=== PATIENT | male | born 1975 | race Native Hawaiian/Other Pacific Islander ===

== ENCOUNTER → 2022-07-07 10:09 | Outpatient (BNVA) | payer SELFPAY | PROVIDERS: PCP Family Medicine; Visit Provider Family Medicine | DX: F10.10 Alcohol abuse, uncomplicated (principal); F41.9 Anxiety disorder, unspecified; Z98.84 Bariatric surgery status | CPT/HCPCS: 80053 ==

== ENCOUNTER → 2022-07-24 11:24 | Outpatient (BNVA) | payer SELFPAY | PROVIDERS: PCP Family Medicine; Visit Provider Nurse Practitioner Family | DX: F10.939 Alcohol use, unspecified with withdrawal, unspecified (principal) | CPT/HCPCS: 80053 ==

== ENCOUNTER 2022-07-26 11:59 | Inpatient (IN) | payer SELFPAY ==
[2022-07-26] VITALS (11 sets, daily range): BP systolic 97–135; BP diastolic 61–86; PULSE 76–114; RESP 14–19; TEMP 36.2; O2SAT 92–99; BMI 42.0
--- NOTE | 2022-07-26 12:15 | ECG_ITS ---
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 Measurements Intervals [place] Rate: 150 P: [place]: QRS: -3 QRSD: 95 T: 44 QT: 288 QTc: 455 Interpretive Statements ATRIAL FIBRILLATION WITH RAPID VENTRICULAR RESPONSE MODERATE VOLTAGE CRITERIA FOR LVH, CONSIDER NORMAL VARIANT [MEETS CRITERIA IN ONE OF: R(aVL), S(V1), R(V5), R(V5/V6)+S(V1)] MINIMAL ST DEPRESSION [0.025+ mV ST DEPRESSION] No previous ECG available for comparison Electronically Signed On 07-27-2022 10:36:17 CDT by Rafat Galarza M.D. [email or web address].Tela InnovationsDuvas Technologiespremier health [facility].[employer]/store/NU/[id number] f
--- NOTE | 2022-07-26 12:29 | XR_ITS ---
WS: [id number] XR chest 1V portable [id number] REASON FOR EXAM: dyspnea FINDINGS: Mild tortuosity of the thoracic aorta. Heart at the upper limits of normal in size. Calcified granulomatous disease in both hemithoraces. No acute pulmonary parenchymal or pleural abnormality. Mild thoracic scoliosis convex right with mild changes of degenerative spondylosis in the mid and low er thoracic spine. XR/XR chest 1V portable [id number] IMPRESSION: No acute chest abnormality.
[2022-07-26 12:57] LABS: Basophils # 0.1 10^3/uL (0.0-0.1); Basophils % 0.7 %; Hematocrit 54.3 % (42.0-52.0); Hemoglobin 18.4 g/dL (11.7-16.6); Lymphocytes # 2.2 10^3/uL (0.8-4.8); Lymphocytes % 17.6 %; Mean Corpuscular HGB Conc 33.9 g/dL (30.0-36.0); Mean Corpuscular Hemoglobin 29.8 pg (28.0-34.0); Mean Corpuscular Volume 87.9 fl (80-94); Mean Platelet Volume 10.2 fL (7.4-10.4); Monocytes # 0.7 10^3/uL (0.2-0.9); Monocytes % 5.9 %; Neutrophils # 9.29 10^3/uL (1.8-7.7); Neutrophils % 75.5 %; Nucleated Red Blood Cells % 0 %; Platelet Count 308 10^3/cmm (130-400); Red Blood Count 6.18 10^6/uL (4.1-5.3); Red Cell Distribution Width 12.3 % (12.1-15.1); White Blood Count 12.3 10^3/uL (4.0-10.0)
--- NOTE | 2022-07-26 13:20 | W.ED.GENADLT ---
HPI - General Adult General: Chief complaint: General Medical Stated complaint: Chest pains, dizzy, SOB Time Seen by Provider: 07/26/22 12:42 Source: patient Mode of arrival: ambulatory Limitations: no limitations History of Present Illness: 47-year-old male presents emergency room with complaints of rapid heart rate. Patient has a history of atrial fibrillation. He also has a history of alcohol abuse he has been drinking heavily earlier this week he tried to stop again. He is normally on metoprolol tartrate 100 twice daily. He is not on any anticoagulants he had been previously but they are stopped because of his drinking. Been lightheaded and dizzy but denies any chest pain. Onset (ago): minute(s) Location: abdomen Radiation: non-radiation Severity: moderate Quality: aching Pain Consistency: constant Relieving factors: none Associated symptoms: Reports decreased appetite, dyspnea, malaise, nausea, palpitations and short of breath; Deny chest pain, confusion, cough, diaphoresis, fevers/chills, headache(s), rash, seizures, syncope, vomiting or weakness Treatments prior to arrival: none Review of Systems Const: Reports: malaise; Denies: fever(s), chills, fatigue or diaphoresis ENMT: Denies: throat pain, ear or mastoid pain, nasal discharge or nasal congestion Card: Reports: palpitations and irregular heart rhythm; Denies: chest pain or syncope Resp: Reports: dyspnea GI: Reports: nausea; Denies: abdominal pain or vomiting : Denies: flank pain, dysuria, urinary frequency or urinary urgency Skin/Breast: Denies: rash Neuro: Denies: headache(s) or confusion PFS ED PFSH: Medical History HTN (hypertension) Surgical History Bariatric surgery status Family History Mother Hypertension Father Hypertension Denies family history of Diabetes Dementia Hyperlipidemia Chronic kidney disease (CKD) Suicide Lung disease Cancer Stroke Social History Smoking and tobacco status: never smoked Alcohol intake: current Alcohol intake frequency: few times a month Alcohol type: hard liquor Marital status: Single Highest education level completed: Some College, No Degree service: No Current occupational status: employed Current gender identity: Male Physical Exam Const: COMMON NORMALS: no acute distress GENERAL APPEARANCE: cooperative and comfortable ORIENTATION/CONSCIOUSNESS: Yes awake, Yes oriented to person, Yes oriented to place and Yes oriented to time HENMT: COMMON NORMALS: normocephalic and atraumatic HEAD & SCALP: normocephalic and atraumatic Resp: COMMON NORMALS: normal respiratory effort, No retractions, No use of accessory muscles and clear to auscultation bilaterally AUSCULTATION: clear to auscultation bilaterally Cardio: RATE: tachycardic RHYTHM: abnormal rhythm irregularly irregular GI: COMMON NORMALS: Soft to palpation and No hepatosplenomegaly present AUSCULTATION: Yes normoactive bowel sounds PALPATION: Yes Soft to palpation, No Tenderness to palpation present (GI), No Guarding due to palpation present (GI) and Yes No hepatosplenomegaly present Extremity: COMMON NORMALS: normal to inspection, capillary refill normal, no clubbing, cyanosis or edema, no calf tenderness and no pedal edema Neuro: SENSORIUM/ORIENTATION: Yes oriented to person, Yes oriented to place and Yes oriented to time Skin: COMMON NORMALS: no rashes or lesions noted GENERAL SKIN EXAM: no rashes or lesions noted Course Vital Signs: Vital signs: Vital Signs Temperature 97.2 F L 07/26/22 12:29 Pulse Rate 84 07/26/22 16:56 Respiratory Rate 15 07/26/22 16:56 Blood Pressure 123/86 07/26/22 16:56 Pulse Oximetry 95 07/26/22 16:56 Oxygen Delivery Sc thod 07/26/22 16:56 MDM - General Adult Medical Decision Making Patient initially was in A. fib with RVR converted to sinus tachycardia. He appears to be in withdrawal. Discussed with him initially was telling me that he only had a 1 week shrestha but then admits he had been drinking more regularly for longer period of time. He is not drank last couple of days is tachycardic now some mild kidney injury and is volume depleted is given fluids do not believe it safe to send him home he is having early signs of physical withdraw. We will admit him discussed with Dr. Field. Orders written Medical Records I reviewed the patient's medical records. Lab Data I reviewed the patient's lab results. : 07/26/22 12:45 07/26/22 12:45 Radiology Impressions Chest X-Ray 07/26/22 12:29 IMPRESSION: No acute chest abnormality. Laboratory Results WBC 12.3 10^3/uL (4.0-10.0) H 07/26/22 12:45 RBC 6.18 10^6/uL (4.1-5.3) H 07/26/22 12:45 Hgb 18.4 g/dL (11.7-16.6) H 07/26/22 12:45 Hct 54.3 % (42.0-52.0) H 07/26/22 12:45 MCV 87.9 fl (80-94) 07/26/22 12:45 MCH 29.8 pg (28.0-34.0) 07/26/22 12:45 MCHC 33.9 g/dL (30.0-36.0) 07/26/22 12:45 RDW 12.3 % (12.1-15.1) 07/26/22 12:45 Plt Count 308 10^3/cmm (130-400) 07/26/22 12:45 MPV 10.2 fL (7.4-10.4) 07/26/22 12:45 Neut % (Auto) 75.5 % 07/26/22 12:45 Lymph % (Auto) 17.6 % 07/26/22 12:45 [place] % (Auto) 5.9 % 07/26/22 12:45 Eos % (Auto) 0.0 % 07/26/22 12:45 Baso % (Auto) 0.7 % 07/26/22 12:45 Neut # (Auto) 9.29 10^3/uL (1.8-7.7) H 07/26/22 12:45 Lymph # (Auto) 2.2 10^3/uL (0.8-4.8) 07/26/22 12:45 [place] # (Auto) 0.7 10^3/uL (0.2-0.9) 07/26/22 12:45 Eos # (Auto) 0.0 10^3/uL (0.0-0.8) 07/26/22 12:45 Baso # (Auto) 0.1 10^3/uL (0.0-0.1) 07/26/22 12:45 Nucleated RBC % (auto) 0 % 07/26/22 12:45 Nucleated RBCs # 0.0 /100WBC 07/26/22 12:45 Sodium 136 mmol/L (136-145) 07/26/22 12:45 Potassium 3.7 mmol/L (3.5-5.1) 07/26/22 12:45 Chloride 96 mmol/L (98-107) L 07/26/22 12:45 Carbon Dioxide 19 mmol/L (22-29) L 07/26/22 12:45 Anion Gap 24.7 (5-19) H 07/26/22 12:45 BUN 10 mg/dL (6-20) 07/26/22 12:45 Creatinine 1.5 mg/dL (0.7-1.2) H 07/26/22 12:45 GFR Calculation 49.9 mL/min (90-130) L 07/26/22 12:45 Glucose 148 mg/dL (65-115) H 07/26/22 12:45 Calculated Osmolality 284 mOsm/kg (285-295) L 07/26/22 12:45 Calcium 9.3 mg/dL (8.5-10.5) 07/26/22 12:45 Troponin T Baseline 24 ng/L (0-15) H 07/26/22 12:45 Troponin T 120 Minute 21.05 ng/L (0-15) H 07/26/22 14:53 Delta Troponin T -2.95 ABS# (0-10) L 07/26/22 14:53 NT-Pro-B Natriuret Pep 216 pg/mL (0-125) H 07/26/22 12:45 Lipase 25 U/L (13-60) 07/26/22 12:45 Discharge Plan Discharge Patient Disposition: Admitted As Inpatient Clinical Impression: Alcohol withdrawal, A-fib Condition: Stable Prescriptions: No Action escitalopram oxalate 10 mg tablet 10 mg PO DAILY Qty: 30 1RF Vivitrol 380 mg suspension,extended rel recon 380 mg IM ONCE 28 Days Qty: 1 5RF Rx Instructions: 380mg IM q 4 weeks for alcohol abuse metoprolol tartrate 100 mg tablet 100 mg PO BID Qty: 180 3RF potassium chloride [Klor-Con M10] 10 mEq tablet,ER particles/crystals 10 meq PO DAILY Qty: 30 0RF Referrals: Farzad Flores, [Primary Care Provider] - Coding Level of Care Code ED Regulatory Affairs Specialist for Chg Dc
[2022-07-26 13:31] LABS: Blood Urea Nitrogen 10 mg/dL (6-20); Calcium 9.3 mg/dL (8.5-10.5); Carbon Dioxide 19 mmol/L (22-29); Chloride 96 mmol/L (98-107); Glomerular Filtration Rate 49.9 mL/min (90-130); Glucose 148 mg/dL (65-115); NT Pro B Type Natriuretic Pept 216 pg/mL (0-125); Osmolality Calculated 284 mOsm/kg (285-295); Sodium 136 mmol/L (136-145); Troponin(5th) Baseline 24 ng/L (0-15)
[2022-07-26 13:34] LABS: Anion Gap 24.7 (5-19); Potassium 3.7 mmol/L (3.5-5.1)
[2022-07-26 13:49] LABS: Lipase 25 U/L (13-60)
[2022-07-26] MEDS: LORazepam 2 mg Tablet PO ×2 (13:49→15:57)
[2022-07-26] MEDS: folic acid 1 MG, multivitamin inj 10 ML, thiamine 100 MG in sodium chloride 0.9% 1,000 ML 252.8 MG IV (13:49)
[2022-07-26] MEDS: metoprolol tartrate 1 mg/1 mL SDV 5 mL 2.5 MG IVP (13:49)
[2022-07-26] MEDS: promethazine 25 mg/mL SDV 1 mL IM (13:50)
[2022-07-26 15:14] LABS: Troponin 5 2HR 21.05 ng/L (0-15)
[2022-07-26 15:15] LABS: Troponin 5 2HR Delta -2.95 ABS# (0-10)
--- NOTE | 2022-07-26 15:41 | P.HP_ITS ---
Providers/Chief Complaint Primary Care Provider: Farzad Flores DO Chief Complaint: Chest pains, dizzy, SOB History of Present Illness Dexter Gonzalez is a 47 year old male past medical history of alcohol abuse, gout, hypertension, atrial fibrillation, not on anticoagulation presented to the hospital today for complaint of rapid heart rate. Patient has tried to stop drinking in the past and was prescribed naltrexone injections but was unable to afford them therefore did not use any. He takes metoprolol 12 return milligram twice daily at home. He says he used to take anticoagulants in the past but stopped because of his drinking. He says he has not had much to eat or drink in the last 3 to 4 days. He has been dry heaving a lot and has vomited 6-7 times. He states at times when he vomited he also noted some streaks of blood in there. He also reports dark black stools for last few days. He says the black stools are intermittent and not there all the time. He also says he has been having decreased urine output. He says he drinks vodka half a pint to a pint or more a day. His last drink was at noon today. He says he has periods of binge drinking where he drinks a lot. 2 days ago he drank a bottle of rubbing alcohol about 500 cc. And yesterday he drank a purrel 3 ounce and denture technician bottle. And that is because he did not have access to vodka. Today however he drank vodka. He says he has been hospitalized numerous times in various states in the past. 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 His most recent admission was in January 2022 in [place] in [facility]. We will be requesting records. At this time patient denies chest pain, shortness of breath or abdominal pain, diarrhea. ER course: Hemoglobin 18.4, WBC 12.3, chloride 96, sodium 136, CO2 19, anion gap 24.7, creatinine 1.5, troponin 24, 21, BNP 216. Patient received clonidine 0.1x1, oral Ativan 2 mg x 2, 2.5 IV metoprolol titrate, phenobarb 60 mg IV x1, banana bag, promethazine 25 IM x1. Chest x-ray no acute chest abnormality. Medications/Allergies Home Medications Medication Instructions Recorded Confirmed Last Taken Type escitalopram oxalate 10 mg tablet 10 mg PO DAILY #30 tabs 07/07/22 07/26/22 Unknown Rx metoprolol tartrate 100 mg tablet 100 mg PO BID #180 tabs 07/07/22 07/26/22 07/26/22 Rx naltrexone microspheres 380 mg 380 mg IM ONCE 4 weeks #1 ea 07/07/22 07/26/22 Unknown Rx intramuscular suspension,extended release (Vivitrol) potassium chloride 10 mEq 10 meq PO DAILY #30 tabs 07/24/22 07/26/22 Unknown Rx tablet,extended release(part/cryst) (Klor-Con M) Allergies Allergy/AdvReac Type Severity Reaction Status Date / Time No Known Allergies Allergy Verified 07/26/22 14:23 PFSH Acute PFSH: Medical History HTN (hypertension) Surgical History Bariatric surgery status Family History Mother Hypertension Father Hypertension Denies family history of Diabetes Dementia Hyperlipidemia Chronic kidney disease (CKD) Suicide Lung disease Cancer Stroke Social History Smoking and tobacco status: never smoked Alcohol intake: current Alcohol intake frequency: few times a month Alcohol type: hard liquor Marital status: Single Highest education level completed: Some College, No Degree service: No Current occupational status: employed Current gender identity: Male Vitals/I&O/Wt Last Vital Signs Temp 97.2 F L 07/26/22 12:29 Pulse 109 H 07/26/22 15:30 Resp 15 07/26/22 15:30 BP 135/80 07/26/22 15:30 Pulse Ox 96 07/26/22 15:30 O2 Del Method 07/26/22 15:30 Weight last 48 hrs Weight 140.614 kg Physical Exam Narrative: General: Alert oriented x3, patient seen sitting up in bed appearing comfortable at this time on room air HEENT: Normocephalic, atraumatic, EOMI, breathing normally on room air Cardio: Regular rate rhythm, normal S1-S2, Respiratory: Good bilateral air entry, no wheezes no rhonchi appreciated GI: Abdomen soft, nontender, nondistended, obese rounded abdomen, bowel sounds + Behavior: Appropriate and cooperative Extremities: No bilateral lower extremity edema, knees not warm or erythematous at the time Data : 07/27/22 02:27 07/27/22 02:27 A&P Assessment and plan (1) Alcohol withdrawal: Status: Acute (2) A-fib: Status: Acute (3) Anxiety: Status: Acute (4) Alcohol abuse: Status: Acute Plan #Alcohol abuse, alcohol withdrawal #Atrial fibrillation with RVR #Metabolic acidosis, possibly starvation ketosis #Dehydration #Nausea vomiting #Ingestion of 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 #History of gout, stable at this time - Admit to ICU - Check urine drug screen, alcohol level ? Check FOBT ? Check serum ketones ? High-dose IV thiamine 500 3 times daily x48 hours, to 50 mg daily thereafter total 5 days ? Continue on normal saline 125 cc/h ? Trend electrolytes ? Osmolar gap not elevated ? Patient appears severely dehydrated. We will continue on fluids ? Continue Metroprolol tartrate 100 twice daily ? CIWA protocol ? We will give phenobarbital for withdrawal. - NS bolus x 1L -Patient appears dehydrated and hemoconcentrated. Will give fluids and started on normal saline 125 cc/h ? We will administer thiamine and then slowly start a diet. -Check ABG -We will continue to monitor hemoglobin. ? Check hepatitis profile Full code DVT prophylaxis: SCD Attestations Medical Necessity Statement*: Patient will require to stay in the hospital for next 42 to 72 hours for alcohol withdrawal. Coding Level of Care Code Acute Vegetables Cook for Chg Fwd Diagnoses Alcohol withdrawal F10.939 A-fib I48.91 Anxiety F41.9 Alcohol abuse F10.10
[2022-07-26] MEDS: cloNIDine 0.1 mg Tablet PO (15:56)
[2022-07-26] MEDS: PHENobarbital 130 mg/mL SDV 1 mL 60 MG IV (15:57)
[2022-07-26] MEDS: metoprolol tartrate 50 mg Tablet 100 MG PO (15:57)
--- NOTE | 2022-07-26 18:17 | ECG_ITS ---
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 Measurements Intervals [place] Rate: 78 P: 43 [place]: 175 QRS: 13 QRSD: 110 T: 30 QT: 411 QTc: 470 Interpretive Statements SINUS RHYTHM Compared to ECG 07/26/2022 13:35:57 Sinus tachycardia no longer present T-wave abnormality no longer present Electronically Signed On 07-27-2022 10:42:09 CDT by Rafat Galarza M.D. [email or web address].[employer]/store/[id number]
[2022-07-26 18:28] LABS: Amphetamines Screen Urine Negative (Negative); Barbiturates Screen Urine Negative (Negative); Benzodiazepines Screen Urine Positive (Negative); Cocaine Screen Urine Negative (Negative); Opiate Screen Urine Negative (Negative); PCP Screen Urine Negative (Negative); THC Screen Urine Negative (Negative)
[2022-07-26 18:29] LABS: Alcohol Level < 10 mg/dL (0-10)
--- NOTE | 2022-07-26 18:29 | ECG_ITS ---
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 Measurements Intervals [place] Rate: 110 P: 40 [place]: 132 QRS: 14 QRSD: 98 T: 29 QT: 335 QTc: 453 Interpretive Statements SINUS TACHYCARDIA POSSIBLE LEFT ATRIAL ENLARGEMENT [-0.1mV P-WAVE IN V1/V2] NONSPECIFIC T-WAVE ABNORMALITY ABNORMAL RHYTHM ECG INTERPRETATION BASED ON A DEFAULT AGE OF 40 YEARS Compared to ECG 07/26/2022 12:15:52 T-wave abnormality now present Atrial fibrillation no longer present ST (T wave) deviation no longer present Electronically Signed On 07-27-2022 10:43:04 CDT by Rafat Galarza M.D. [id number]
[2022-07-26 18:53] LABS: Bilirubin Urine 2+ (Negative); Blood Urine Neg (Negative); Glucose Urine UA Norm (Normal); Ketones Urine 2+ (Negative); Nitrate Urine Negative (Negative); Protein Urine 1+ (Negative); Urine Appearance Clear (CLEAR); Urine Color Dark Yellow (Yellow); pH Urine 5 (5-7)
[2022-07-26 18:54] LABS: Add Urine Culture? Yes; Add Urine Microscopic? YES; Bacteria Urine 2+ /hpf; Hyaline Casts Urine 15-25 /lpf; Leukocyte Esterase Urine Negative (Negative); Mucus Urine 2+ /hpf; RBC Urine 0-4 /hpf (0-2); Squamous Epithelial Cell Urine 0-4 /hpf (0-5); Urobilinogen Urine 4 mg/dL (Negative)
[2022-07-26] MEDS: sodium chloride 0.9% 1,000 ML 999 ML IV (18:56)
[2022-07-26 19:22] LABS: Lactic Sepsis W/Reflex 1.8 mmol/L (0.5-2.2); Magnesium 1.9 mg/dL (1.7-2.3)
[2022-07-26 19:32] LABS: Troponin 5 6HR 17.46 ng/L (0-15)
[2022-07-26 19:37] LABS: Troponin 5 6HR Delta -6.54 ng/L (0-12)
--- NOTE | 2022-07-26 21:42 | PC.NURSE ---
PATIENT RESTING IN BED. PATIENT HAS NO FURTHER NEEDS AT THIS TIME.
[2022-07-27] VITALS (25 sets, daily range): BP systolic 110–164; BP diastolic 78–98; PULSE 73–99; RESP 7–26; TEMP 36.7–36.9; O2SAT 94–99
[2022-07-27] MEDS: sodium chloride 0.9% 1,000 ML 125 ML IV ×3 (00:29→16:04)
[2022-07-27] MEDS: LORazepam 2 mg Tablet PO ×3 (01:21→17:22)
--- NOTE | 2022-07-27 01:23 | PC.NURSE ---
Admitted to ICU 4 via wheelchair from ED. Reports feeling anxious and shaky at present time. Order noted for bladder scan and indwelling killian. Patient refused killian at present time. Scanned bladder and 104mL urine estimated. No CIWA orders noted. Notified Dr. Mason and orders placed. Ativan 2mg given PO per CIWA.
[2022-07-27 03:53] LABS: Basophils # 0.1 10^3/uL (0.0-0.1); Basophils % 0.5 %; Eosinophils % 0.4 %; Hemoglobin 14.6 g/dL (11.7-16.6); Lymphocytes # 1.2 10^3/uL (0.8-4.8); Mean Corpuscular HGB Conc 32.4 g/dL (30.0-36.0); Mean Corpuscular Volume 92.4 fl (80-94); Mean Platelet Volume 10.6 fL (7.4-10.4); Monocytes # 0.6 10^3/uL (0.2-0.9); Monocytes % 6.6 %; Neutrophils # 7.49 10^3/uL (1.8-7.7); Neutrophils % 79.1 %; Nucleated Red Blood Cells % 0 %; Platelet Count 224 10^3/cmm (130-400); Red Blood Count 4.87 10^6/uL (4.1-5.3); Red Cell Distribution Width 12.7 % (12.1-15.1); White Blood Count 9.5 10^3/uL (4.0-10.0)
[2022-07-27 04:26] LABS: Alanine Aminotransferase 15 U/L (0-41); Albumin Level 3.6 g/dL (3.5-5.2); Alkaline Phosphatase 53 U/L (40-130); Aspartate Amino Transferase 20 U/L (0-40); Blood Urea Nitrogen 13 mg/dL (6-20); Calcium 8.7 mg/dL (8.5-10.5); Carbon Dioxide 28 mmol/L (22-29); Chloride 99 mmol/L (98-107); Globulin 2.5 g/dL (1.3-4.6); Glomerular Filtration Rate 58.9 mL/min (90-130); Glucose 189 mg/dL (65-115); Osmolality Calculated 293 mOsm/kg (285-295); Sodium 139 mmol/L (136-145); Total Bilirubin 0.5 mg/dL (0.15-1.2); Total Protein 6.1 g/dL (6.6-8.7)
[2022-07-27 04:27] LABS: Anion Gap 15.6 (5-19); Potassium 3.6 mmol/L (3.5-5.1)
[2022-07-27] MEDS: TRAMadol 50 mg Tablet PO ×2 (04:45→16:04)
[2022-07-27] MEDS: pantoprazole 40 mg SDV IVP ×2 (08:27→17:16)
[2022-07-27] MEDS: multivitamin therapeutic Tablet 1 TAB PO (08:28)
[2022-07-27] MEDS: metoprolol tartrate 50 mg Tablet 100 MG PO ×2 (08:28→17:15)
[2022-07-27] MEDS: folic acid 1 mg Tablet PO (08:28)
[2022-07-27] MEDS: escitalopram 10 mg Tablet PO (08:28)
[2022-07-27] MEDS: potassium chloride ER 20 mEq Tablet 40 MEQ PO (10:08)
--- NOTE | 2022-07-27 13:27 | P.PN_ITS ---
Subjective Subjective: Seen this morning. Patient complains of right knee pain 10 out of 10. He believes his gout is flaring up. He is to been on allopurinol in the past however not being able to afford medication he stopped taking it. He is requesting colchicine specifically. Overall however he is no longer having nausea vomiting and feeling better. He is a little bit anxious. Scored 6 on CIWA this morning. Vitals/I&O/Wt Last Vital Signs Temp 98.4 F 07/27/22 04:00 Pulse 84 07/27/22 12:00 Resp 25 H 07/27/22 12:00 BP 125/84 07/27/22 12:00 Pulse Ox 94 07/27/22 12:00 O2 Del Method 07/27/22 12:00 07/26/22 07/27/22 07/27/22 22:59 06:59 14:59 Intake Total 200 / 200 1551.667 / 1551.667 Output Total 250 / 250 Balance -50 / -50 1551.667 / 1551.667 Weight last 48 hrs Weight 139.979 kg Weight 140.614 kg Physical Exam Narrative: General: Alert oriented x3, patient seen sitting up in bed appearing comfortable at this time on room air HEENT: Normocephalic, atraumatic, EOMI, breathing normally on room air Cardio: Regular rate rhythm, normal S1-S2, Respiratory: Good bilateral air entry, no wheezes no rhonchi appreciated GI: Abdomen soft, nontender, nondistended, obese rounded abdomen, bowel sounds + Behavior: Appropriate and cooperative Extremities: No bilateral lower extremity edema, right knee warm compared to left, very tender to touch. 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 #History of gout, stable at this time - Admit to ICU - Urine drug screen negative. ? FOBT pending ? High-dose IV thiamine 500 3 times daily x48 hours, to 50 mg daily thereafter total 5 days ? Continue on normal saline 125 cc/h -Troponins negative ? Continue Metroprolol tartrate 100 twice daily ? [facility] protocol - We will continue to monitor hemoglobin. ? Check hepatitis profile - Cr elevated 1.3. Will place on prednisone 40 x5 days for gout flare - Check uric acid level - Check cpk -At discharge patient will need meds to beds. -Patient's last drink was yesterday at noon. Continue to monitor in the unit today. Potentially discharge tomorrow versus transfer to floor depending on clinical status. Full code DVT prophylaxis: SCD Attestations Medical Necessity Statement*: Patient will need continued monitoring in the ICU tonight for potential of alcohol withdrawal. He is improving. Critical Care Time: 20 Coding Level of Care Code Acute Regional Refrigerated Cdl Truck Driver for Concetta Irwin Diagnoses Alcohol withdrawal F10.939 A-fib I48.91 Anxiety F41.9 Alcohol abuse F10.10
[2022-07-27 16:53] LABS: Creatine Phosphokinase 229 U/L (39-308); Uric Acid 7.9 mg/dL (3.4-7.0)
[2022-07-27 17:05] LABS: Hepatitis A Antibody IgM Non-Reactive (Nonreactive); Hepatitis B Core AB, Total Non-Reactive (Nonreactive); Hepatitis B Surface AB 3.7 (11.5-1000); Hepatitis B Surface Antigen Non-Reactive (Nonreactive); Hepatitis C Virus Antibody Non-Reactive (Nonreactive)
--- NOTE | 2022-07-27 19:17 | PC.NURSE ---
Shift Note Frequent safety and comfort rounds continue. Orders and/or nursing care completed as indicated. Patient monitored for response to intervention and treatment(s). Education provided includes, CIWA assessment and signs to report, Fall risks,medication education upon administration, recovery programs available, pain management and treatment options, and Dr. Field's orders and goals for treatment throughout shift. Patient and significant other at bedside, verbalized understanding of teachings.
[2022-07-27] MEDS: PHENobarbital 130 mg/mL SDV 1 mL IV (20:10)
[2022-07-28] VITALS (13 sets, daily range): BP systolic 147–183; BP diastolic 98–123; PULSE 68–81; RESP 17–30; TEMP 36.7–37.2; O2SAT 94–95
[2022-07-28] MEDS: sodium chloride 0.9% 1,000 ML 125 ML IV ×3 (00:40→17:28)
[2022-07-28 04:39] LABS: Anion Gap 15.5 (5-19); Blood Urea Nitrogen 8 mg/dL (6-20); Calcium 8.8 mg/dL (8.5-10.5); Carbon Dioxide 23 mmol/L (22-29); Chloride 102 mmol/L (98-107); Creatinine Clr Calc Pharmacy 149.2814; Glomerular Filtration Rate 90.1 mL/min (90-130); Glucose 155 mg/dL (65-115); Osmolality Calculated 283 mOsm/kg (285-295); Potassium 4.5 mmol/L (3.5-5.1); Sodium 136 mmol/L (136-145)
[2022-07-28] MEDS: pantoprazole 40 mg SDV IVP ×2 (08:27→16:16)
[2022-07-28] MEDS: metoprolol tartrate 50 mg Tablet 100 MG PO ×2 (08:27→16:16)
[2022-07-28] MEDS: escitalopram 10 mg Tablet PO (08:27)
[2022-07-28] MEDS: multivitamin therapeutic Tablet 1 TAB PO (08:27)
[2022-07-28] MEDS: folic acid 1 mg Tablet PO (08:27)
[2022-07-28] MEDS: predniSONE 20 mg Tablet 40 MG PO (08:32)
[2022-07-28] MEDS: TRAMadol 50 mg Tablet PO ×2 (10:44→21:17)
--- NOTE | 2022-07-28 13:13 | PC.CHAP ---
Pastoral Care Encounter/Spiritual Assessment Type of Contact [] Declined bridge manager visit [] Patient/Family/Request visit [] Outpatient visit [] Follow-up visit [] Physician referral [] Code/Alert [x] Routine visit [] Staff referral [] Actively dying [x] Patient sleeping [] Family support [] [] Out of room [] Palliative care [] [] Receiving care in room [] Pre-surgical visit [] Trauma [] Long length of stay [x] ICU visit [] Other: Relational/Emotional Strength [] Patient feels connected with others/family/visitors/staff [] Distress [] Loneliness/isolation [] Abandonment Spirituality of Patient [] Person of Shobha [] Attends Anabaptist of their Shobha [] Believes in Prayer [] Reads Bible or Mandaeism materials [] There are Spiritual issues to be addressed Dashboard Developer Interventions [x] Prayer [] Active listening [] Non-anxious presence [] Spiritual/emotional support [] Crisis/trauma care [] Spiritual counseling [] Bereavement support [] Provided bereavement packet [] Provided Bible/devotional materials [] Provided toy/stuffed animal, coloring book to patient or family member [] Provided Communion [] Anointing/Commerce [] Salvation [x] Completed spiritual assessment [] Other: Impact on Illness or Injury [] Angry [] Fearful [] Anxious [] Often cries [] Exhaustion [] Unable to work [] Unable to attend scientology [] Unable to walk/stand [] Unable to read [] Unable to drive [] Unable to eat/drink [] Unable to sleep [] Unable to be with family [] Patient intubated [] Other: Summary Time spent with patient
--- NOTE | 2022-07-28 15:11 | PM.PN ---
Subjective Subjective: Seen this morning. Patient states his knee is starting to feel better however he was unable to bear too much weight on it. He did require phenobarbital 130 mg IV x1 dose yesterday. He is doing well at this point. He is no longer having nausea or vomiting. He would like to work with physical therapy. He is requiring a walker at this time. Nausea vomiting has resolved. Vitals/I&O/Wt Last Vital Signs Temp 98.9 F 07/28/22 04:00 Pulse 68 07/28/22 12:00 Resp 17 07/28/22 12:00 BP 153/99 07/28/22 08:00 Pulse Ox 94 07/28/22 04:00 O2 Del Method 07/28/22 04:00 07/28/22 07/28/22 07/28/22 06:59 14:59 22:59 Intake Total 1250 / 4201.667 1218.75 / 1218.75 Output Total 725 / 2175 Balance 525 / 2026.667 1218.75 / 1218.75 Weight last 48 hrs Weight 146.465 kg Weight 139.979 kg Physical Exam Narrative: General: Alert oriented x3, patient seen sitting up in bed appearing comfortable at this time on room air HEENT: Normocephalic, atraumatic, EOMI, breathing normally on room air Cardio: Regular rate rhythm, normal S1-S2, Respiratory: Good bilateral air entry, no wheezes no rhonchi appreciated GI: Abdomen soft, nontender, nondistended, obese rounded abdomen, bowel sounds + Behavior: Appropriate and cooperative Extremities: No bilateral lower extremity edema, right knee warm compared to left, mildly tender to touch but much better compared to yesterday. Swelling has also gone down. 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 #Acute gout flare right knee - Urine drug screen negative. ? FOBT negative ? High-dose IV thiamine 500 3 times daily x48 hours, to 50 mg daily thereafter total 5 days ? Continue on normal saline 125 cc/h -Troponins negative ? Continue Metroprolol tartrate 100 twice daily ? [facility] protocol - We will continue to monitor hemoglobin. ? Hepatitis profile negative - Cr elevated 1.[address] on prednisone 40 x5 days for gout flare. Creatinine is normal now 0.9. -Uric acid 7.9. Once patient's gout flare is over ideally he should be started back on allopurinol to titrate dose to bring uric acid below 6. I will leave that up to his primary care doctor. -CPK normal. -At discharge patient will need meds to beds. -We will order physical therapy for the patient as he is not really able to bear weight and is using a walker at this time. ? [facility] ? pLan for discharge possibly by tomorrow Full code DVT prophylaxis: SCD Attestations Medical Necessity Statement*: Physical therapy today. Plan for discharge possibly tomorrow as patient is able to bear weight on his knee. Coding Level of Care Code Acute Electric Container Tester for Concetta Irwin Diagnoses Alcohol withdrawal F10.939 A-fib I48.91 Anxiety F41.9 Alcohol abuse F10.10
[2022-07-28] MEDS: PHENobarbital 130 mg/mL SDV 1 mL IV ×2 (17:28→20:02)
--- NOTE | 2022-07-28 18:13 | PC.NURSE ---
anxious and restless .. up in bed .. visiting with noted elevated blood pressure at this time.
[2022-07-29] VITALS (41 sets, daily range): BP systolic 124–197; BP diastolic 68–125; PULSE 68–92; RESP 9–27; TEMP 36.6–36.9; BMI 43.7
[2022-07-29] MEDS: TRAMadol 50 mg Tablet PO (01:22)
[2022-07-29] MEDS: PHENobarbital 130 mg/mL SDV 1 mL IV ×3 (01:22→22:06)
[2022-07-29] MEDS: labetalol 5 mg/mL SDV 20mL 10 MG IVP ×3 (02:56→14:28)
--- NOTE | 2022-07-29 08:04 | PC.NURSE ---
noted blood pressure remains elevated no tremors noted at this time iv medication given to treat hypertension
[2022-07-29] MEDS: predniSONE 20 mg Tablet 40 MG PO (08:38)
[2022-07-29] MEDS: metoprolol tartrate 50 mg Tablet 100 MG PO ×2 (08:38→16:48)
[2022-07-29] MEDS: multivitamin therapeutic Tablet 1 TAB PO (08:38)
[2022-07-29] MEDS: pantoprazole 40 mg SDV IVP (08:38)
[2022-07-29] MEDS: escitalopram 10 mg Tablet PO (08:38)
[2022-07-29] MEDS: folic acid 1 mg Tablet PO (08:38)
--- NOTE | 2022-07-29 09:37 | PC.NURSE ---
blood pressure remains elevated at this time doctor here and phenobarb given instructed to use urinal for urine specimen
[2022-07-29 10:15] LABS: Amphetamines Screen Urine Negative (Negative); Barbiturates Screen Urine Positive (Negative); Benzodiazepines Screen Urine Positive (Negative); Cocaine Screen Urine Negative (Negative); Opiate Screen Urine Negative (Negative); PCP Screen Urine Negative (Negative); THC Screen Urine Negative (Negative)
--- NOTE | 2022-07-29 10:47 | PM.PN ---
Subjective Subjective: seen this AM. Pt's BP has been elevated since yesterday. He has required IV pushes of labetalol. He has received total 5 doses of phenobarbital. He will be working with PT this AM. He states his knee is better Vitals/I&O/Wt Last Vital Signs Temp 97.8 F 07/29/22 04:00 Pulse 80 07/29/22 08:00 Resp 27 H 07/29/22 08:00 BP 178/111 07/29/22 08:00 Pulse Ox 94 07/28/22 04:00 O2 Del Method 07/28/22 04:00 07/28/22 07/29/22 07/29/22 22:59 06:59 14:59 Intake Total 1450 / 2668.75 100 / 2768.75 Output Total 350 / 350 Balance 1100 / 2318.75 100 / 2418.75 Weight last 48 hrs Weight 146.465 kg Weight 146.465 kg Physical Exam Narrative: General: Alert oriented x3, patient seen sitting up in bed appearing comfortable at this time on room air HEENT: Normocephalic, atraumatic, EOMI, breathing normally on room air Cardio: Regular rate rhythm, normal S1-S2, Respiratory: Good bilateral air entry, no wheezes no rhonchi appreciated GI: Abdomen soft, nontender, nondistended, obese rounded abdomen, bowel sounds + Behavior: Appropriate and cooperative Extremities: No bilateral lower extremity edema, right knee better compared to yesterday. 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 ? FOBT negative ? High-dose IV thiamine 500 3 times daily x48 hours, to 50 mg daily thereafter total 5 days ? Continue on normal saline 125 cc/h -Troponins negative ? Continue Metroprolol tartrate 100 twice daily ? [facility] protocol - We will continue to monitor hemoglobin. ? Hepatitis profile negative - Cr elevated 1.[address] on prednisone 40 x5 days for gout flare. Creatinine is normal now 0.9. -Uric acid 7.9. Once patient's gout flare is over ideally he should be started back on allopurinol to titrate dose to bring uric acid below 6. I will leave that up to his primary care doctor. -CPK normal. -At discharge patient will need meds to beds. - PT today. ? He is hypertensive requiring IV pushes. Will need to stay in hospital for management of HTN. - He is requiring phenobarbital IV pushes as well. Will need to monitor in ICU today. Full code DVT prophylaxis: SCD Attestations Medical Necessity Statement*: Alcohol withdrawal, HTn. Requiring IV BP meds, IV phenobarbital as well. COntinue to monitor in ICU today Coding Level of Care Code Acute Animal Impersonator for [facility] Diagnoses Alcohol withdrawal F10.939 A-fib I48.91 Anxiety F41.9 Alcohol abuse F10.10
[2022-07-29] MEDS: cloNIDine 0.1 mg Tablet PO (11:06)
--- NOTE | 2022-07-29 11:12 | PC.NURSE ---
blood pressure remains elevated clonidine given
--- NOTE | 2022-07-29 14:35 | PC.NURSE ---
blood pressure remains elevated repeat medication and doctor notified
--- NOTE | 2022-07-29 15:45 | PC.NURSE ---
blood pressure check in room lying on right side ... right arm 165/105 right wrist 151/96 left arm 136/78 left wrist 147/89
[2022-07-30] VITALS (42 sets, daily range): BP systolic 132–186; BP diastolic 72–110; PULSE 65–100; RESP 15–30; TEMP 36.6–37.8; O2SAT 93–100; BMI 43.7
[2022-07-30] MEDS: TRAMadol 50 mg Tablet PO ×2 (01:05→19:39)
[2022-07-30] MEDS: labetalol 5 mg/mL SDV 20mL 10 MG IVP (01:06)
[2022-07-30] MEDS: morphine 4 mg/mL SDV 1 mL 1 MG IVP ×4 (02:15→20:50)
[2022-07-30 05:46] LABS: Anion Gap 13.6 (5-19); Blood Urea Nitrogen 10 mg/dL (6-20); Carbon Dioxide 30 mmol/L (22-29); Chloride 97 mmol/L (98-107); Creatinine Clr Calc Pharmacy 149.2814; Glomerular Filtration Rate 90.1 mL/min (90-130); Glucose 128 mg/dL (65-115); Osmolality Calculated 285 mOsm/kg (285-295); Potassium 3.6 mmol/L (3.5-5.1); Sodium 137 mmol/L (136-145)
[2022-07-30] MEDS: metoprolol tartrate 50 mg Tablet 100 MG PO ×2 (08:26→17:23)
[2022-07-30] MEDS: multivitamin therapeutic Tablet 1 TAB PO (08:26)
[2022-07-30] MEDS: folic acid 1 mg Tablet PO (08:26)
[2022-07-30] MEDS: pantoprazole DR 40 mg Tablet PO (08:27)
[2022-07-30] MEDS: escitalopram 10 mg Tablet PO (08:27)
[2022-07-30] MEDS: predniSONE 20 mg Tablet 40 MG PO (08:27)
[2022-07-30] MEDS: acetaminophen 325 mg Tablet 650 MG PO ×3 (09:17→21:27)
--- NOTE | 2022-07-30 13:59 | PM.PN ---
Subjective Subjective: Seen this AM. CIWA score 0. Patient blood pressure is much better controlled at this time. He was able to work with physical therapy yesterday and home exercise program is recommended. Patient complains of bilateral knee pain right being worse than left. He also had low-grade temp today at 100.0 this morning. He was given Tylenol. Vitals/I&O/Wt Last Vital Signs Temp 100.0 F H 07/30/22 08:00 Pulse 79 07/30/22 12:30 Resp 15 07/30/22 12:30 BP 134/93 07/30/22 12:30 Pulse Ox 98 07/30/22 08:31 O2 Del Method 07/28/22 04:00 07/29/22 07/30/22 07/30/22 22:59 06:59 14:59 Intake Total 450 / 750 360 / 360 Output Total 700 / 700 Balance 450 / 550 -3 / 547 -340 / -340 Weight last 48 hrs Weight 146.465 kg Weight 146.465 kg Physical Exam Narrative: General: Alert oriented x3, patient seen sitting up in bed appearing comfortable at this time on room air HEENT: Normocephalic, atraumatic, EOMI, breathing normally on room air Cardio: Regular rate rhythm, normal S1-S2, Respiratory: Good bilateral air entry, no wheezes no rhonchi appreciated GI: Abdomen soft, nontender, nondistended, obese rounded abdomen, bowel sounds + Behavior: Appropriate and cooperative Extremities: No bilateral lower extremity edema, right knee better compared to yesterday. 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 #Acute gout flare right knee - Urine drug screen negative. ? FOBT negative ? High-dose IV thiamine 500 3 times daily x48 hours, thiamine 100 daily ? Stop IV fluids. -Troponins negative ? Continue Metroprolol tartrate 100 twice daily ? [facility] protocol - We will continue to monitor hemoglobin. ? Hepatitis profile negative - Cr elevated 1.[address] on prednisone 40 x5 days for gout flare. Last today July 31. Creatinine is normal now 0.9. -Uric acid 7.9. Once patient's gout flare is over ideally he should be started back on allopurinol to titrate dose to bring uric acid below 6. I will leave that up to his primary care doctor. -CPK normal. -At discharge patient will need meds to beds. - PT eval complete. Home exercise program recommended ? Stop phenobarbital ?I will start amlodipine 5 mg daily. - Check right knee CT Full code DVT prophylaxis: SCD Transfer to floor Attestations Medical Necessity Statement*: Ready for discharge but unable to afford medications. Will dc in AM with meds to beds. Move to floor today. Coding Level of Care Code Acute Biztalk Architect for Concetta Irwin Diagnoses Alcohol withdrawal F10.939 A-fib I48.91 Anxiety F41.9 Alcohol abuse F10.10
--- NOTE | 2022-07-30 18:40 | PC.NURSE ---
REPORT CALLED TO IRLANDA CARMICHAEL. THIS NURSE IS TRANSPORTING PT UP TO THE FLOOR.
--- NOTE | 2022-07-30 18:49 | CTR_ITS ---
PROCEDURE INFORMATION: Exam: CT Right Lower Extremity Without Contrast, Knee Exam date and time: 07/30/2022 9:35 PM Age: 47 years old Clinical indication: Pain; Knee; Right; Additional info: Knee pain TECHNIQUE: Imaging protocol: CT of the Right lower extremity without contrast was performed. Exam focused on the knee. Radiation optimization: All CT scans at this facility use at least one of these dose optimization techniques: automated exposure control; mA and/or kV adjustment per patient size (includes targeted exams where dose is matched to clinical indication); or iterative reconstruction. COMPARISON: No relevant prior studies available. RADIATION DOSE METRICS: Total DLP (mGy-cm): 386.78 FINDINGS: Bones/joints: Large joint effusion. Mild tricompartmental osteoarthritis of the knee. Soft tissues: Normal. CT/CT knee RT wo con* [id number] IMPRESSION: 1. Negative for fracture or dislocation. 2. Large joint effusion. 3. Mild tricompartmental osteoarthritis of the knee.
[2022-07-31] VITALS (11 sets, daily range): BP systolic 118–155; BP diastolic 73–92; PULSE 62–80; RESP 15–18; TEMP 36.6–36.8; O2SAT 95–98
[2022-07-31] MEDS: morphine 4 mg/mL SDV 1 mL 1 MG IVP ×3 (01:32→18:27)
[2022-07-31] MEDS: predniSONE 20 mg Tablet 40 MG PO (08:07)
[2022-07-31] MEDS: thiamine 100 mg Tablet PO (08:07)
[2022-07-31] MEDS: pantoprazole DR 40 mg Tablet PO (08:07)
[2022-07-31] MEDS: multivitamin therapeutic Tablet 1 TAB PO (08:07)
[2022-07-31] MEDS: folic acid 1 mg Tablet PO (08:07)
[2022-07-31] MEDS: metoprolol tartrate 50 mg Tablet 100 MG PO ×2 (08:07→18:27)
[2022-07-31] MEDS: amlodipine 5 mg Tablet PO (08:08)
[2022-07-31] MEDS: escitalopram 10 mg Tablet PO (08:08)
[2022-07-31] MEDS: acetaminophen 325 mg Tablet 650 MG PO (10:56)
--- NOTE | 2022-07-31 13:03 | P.CONIM_ITS ---
Providers/Reason For Consult Consulting Physician/Specialty*: Serafin Wellington MD; orthopedic surgery Reason for Consult*: Bilateral knee pain Requesting Physician: Anum Field MD Attending Physician: Anum Field MD Primary Care Provider: Farzad Flores DO History of Present Illness History of Present Illness Dexter Gonzalez is a 47 year old male admitted on 07/26/2022 with chest pains, shortness of breath, and a rapid heart rate.. He has a complicated medical history. He has a history of atrial fibrillation and as well as had a gout. In the past he is manages his gout with colchicine and anti-inflammatories. He states he was seen in the emergency room with his rapid heart rate at that time had some pain in his knees and right big toe. He states since his admission his pain is significantly increased. He now describes severe pain in the right and left knee. Treatment to this point has included prednisone and pain and morphine for pain. He has no history of fevers or chills. He has no history of other infections. He denies any rashes or skin breakdown. Medications/Allergies Home Medications Medication Instructions Recorded Confirmed Last Taken Type escitalopram oxalate 10 mg tablet 10 mg PO DAILY #30 tabs 07/07/22 07/26/22 Unknown Rx metoprolol tartrate 100 mg tablet 100 mg PO BID #180 tabs 07/07/22 07/26/22 07/26/22 Rx naltrexone microspheres 380 mg 380 mg IM ONCE 4 weeks #1 ea 07/07/22 07/26/22 Unknown Rx intramuscular suspension,extended release (Vivitrol) potassium chloride 10 mEq 10 meq PO DAILY #30 tabs 07/24/22 07/26/22 Unknown Rx tablet,extended release(part/cryst) (Klor-Con M) Allergies Allergy/AdvReac Type Severity Reaction Status Date / Time No Known Allergies Allergy Verified 07/26/22 14:23 Current Medications Generic Name Dose Route Start Last Admin Trade Name Freq PRN Reason Stop Dose Admin Acetaminophen 650 mg 07/30/22 09:00 07/31/22 10:56 Acetaminophen 325 Mg Tablet PO 650 mg Q4H PRN Administration MILD PAIN OR INCREASE TEMP Amlodipine Besylate 5 mg 07/31/22 09:00 07/31/22 08:08 Amlodipine 5 Mg Tablet PO 5 mg DAILY BELLA Administration Escitalopram Oxalate 10 mg 07/27/22 09:00 07/31/22 08:08 Escitalopram 10 Mg Tablet PO 10 mg DAILY BELLA Administration Folic Acid 1 mg 07/27/22 09:00 07/31/22 08:07 Folic Acid 1 Mg Tablet PO 1 mg DAILY BELLA Administration Labetalol HCl 10 mg 07/29/22 01:35 07/30/22 01:06 Labetalol 5 Mg/Ml Sdv 20ml IVP 10 mg Q4H PRN Administration HYPERTENSION Metoprolol Tartrate 100 mg 07/27/22 09:00 07/31/22 08:07 Metoprolol Tartrate 50 Mg Tablet PO 100 mg BID BELLA Administration Morphine Sulfate 1 mg 07/30/22 02:00 07/31/22 08:14 Morphine 4 Mg/Ml Sdv 1 Ml IVP 1 mg Q4H PRN Administration SEVERE PAIN Multivitamins Therapeutic 1 tab 07/27/22 09:00 07/31/22 08:07 Multivitamin Therapeutic Tablet PO 1 tab DAILY BELLA Administration Pantoprazole Sodium 40 mg 07/30/22 09:00 07/31/22 08:[address] 40 Mg Tablet PO 40 mg DAILY BELLA Administration Phenobarbital Sodium 130 mg 07/27/22 18:51 07/29/22 22:06 Phenobarbital 130 Mg/Ml Sdv 1 Ml IV 130 mg Q30MIN PRN Administration ALCOHOL WITHDRAWAL Prednisone 40 mg 07/28/22 09:30 07/31/22 08:07 Prednisone 20 Mg Tablet PO 40 mg DAILY BELLA Administration Thiamine Mononitrate 100 mg 07/31/22 09:00 07/31/22 08:07 Thiamine 100 Mg Tablet PO 100 mg DAILY BELLA Administration PFSH Acute PFSH: Medical History HTN (hypertension) Surgical History Bariatric surgery status Family History Mother Hypertension Father Hypertension Denies family history of Diabetes Dementia Hyperlipidemia Chronic kidney disease (CKD) Suicide Lung disease Cancer Stroke Social History Smoking and tobacco status: never smoked Alcohol intake: current Alcohol intake frequency: few times a month Alcohol type: hard liquor Marital status: Single Highest education level completed: Some College, No Degree service: No Current occupational status: employed Current gender identity: Male Vitals/I&O/Wt Last Vital Signs Temp 98.0 F 07/31/22 12:00 Pulse 75 07/31/22 12:00 Resp 16 07/31/22 12:00 BP 138/90 07/31/22 12:00 Pulse Ox 98 07/31/22 12:00 O2 Del Method 07/31/22 12:00 07/30/22 07/31/22 07/31/22 22:59 06:59 14:59 Intake Total 360 / 960 600 / 600 Balance 360 / 260 600 / 600 Weight last 48 hrs Weight 318 lb 8 oz Weight 322 lb 14.4 oz Physical Exam Narrative: The patient is a healthy he is a healthy-appearing but obese male in no obvious distress. There is erythema about the right big toe metatarsophalangeal joint and the joint is tender to touch. There is no erythema over either knee. He has large effusions in both knees. Right knee motion is from near full extension to 100 degrees of flexion Left knee motion is from 10 degrees short of full extension to approximately 45 degrees of flexion. He has pain with extremes of motion of both knees. His patellas track well Is Mark collateral ligaments are stable. MOTOR: Strong quadriceps hamstrings tibialis anterior and extensor houses longus strength SENSATION: Intact to light touch Vascular: He has palpable dorsalis pedis pulses. Data : 07/27/22 02:27 07/30/22 04:[address]: Radiologist's impression: I reviewed his CT scan of the right knee from 07/30/2022. The patient has mild degenerative changes and a large right knee joint effusion. A&P Assessment and plan (1) Gout: Status: Acute (2) Effusion, right knee: The patient has a history of gout. The clinical The clinical picture multiple joint pain with the involvebig toe would be highly suggestive of gout. The patient has not improved significantly with steroids. I told him the diagnoses could best be clarified by aspirating fluid and sending it off for crystal analysis, cell counts, and culture. I discussed arthrocentesis with him and the patient agreed to proceed The right knee was prepped medially with Betadine. The skin was anesthetized with 1 cc of 1% lidocaine. An 18-gauge needle was introduced and 10 cc of slightly cloudy yellow fluid were aspirated. Fluid was sent for a routine cell count, crystals, and cultures, the knee was then infiltrated with 2 cc of 2% lidocaine, 2 cc of 0.5% Marcaine, and 1 cc of Celestone Soluspan (80 mg/cc) Status: Acute Coding Level of Care Code Acute Hydrogenation Still Operator for [facility] Fwd Diagnoses Gout M10.9 Effusion, right knee M25.461 Comment CPT 79890
[2022-07-31 13:41] LABS: Appearance Synovial Fluid CLOUDY (CLEAR); Color Synovial Fluid PALE YELLOW (PALE YELLOW); Cyto Order Verification No Order
[2022-07-31 13:44] LABS: RBC Synovial Fluid 3 10^3/uL (0-0); Synovial Fluid Mononuclear # 1.341 10^3/uL; WBC Synovial Fluid 25712 /uL (0-150)
[2022-07-31 13:55] LABS: PATH Referal YES
[2022-07-31 14:20] LABS: Crystals, Fluid See Path Consult
--- NOTE | 2022-07-31 14:37 | PM.PN ---
Subjective Subjective: complains of b/l knee pain right worse than left, unable to bear weight fully on that knee. CT right knee shows large joint effusion Vitals/I&O/Wt Last Vital Signs Temp 98.0 F 07/31/22 12:00 Pulse 75 07/31/22 12:00 Resp 16 07/31/22 12:00 BP 138/90 07/31/22 12:00 Pulse Ox 98 07/31/22 12:00 O2 Del Method 07/31/22 12:00 07/30/22 07/31/22 07/31/22 22:59 06:59 14:59 Intake Total 360 / 960 600 / 600 Balance 360 / 260 600 / 600 Weight last 48 hrs Weight 144.469 kg Weight 146.465 kg Physical Exam Narrative: General: Alert oriented x3, patient seen sitting up in bed appearing comfortable at this time on room air HEENT: Normocephalic, atraumatic, EOMI, breathing normally on room air Cardio: Regular rate rhythm, normal S1-S2, Respiratory: Good bilateral air entry, no wheezes no rhonchi appreciated GI: Abdomen soft, nontender, nondistended, obese rounded abdomen, bowel sounds + Behavior: Appropriate and cooperative Extremities: No bilateral lower extremity edema, right knee significantly swollen compared to left but left also swollen today. It has definitely worsened since admission. Symmetrically warm. 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 - Urine drug screen negative. ? FOBT negative ? High-dose IV thiamine 500 3 times daily x48 hours, thiamine 100 daily ? Stop IV fluids. -Troponins negative ? Continue Metroprolol tartrate 100 twice daily ? [facility] protocol - We will continue to monitor hemoglobin. ? Hepatitis profile negative - Cr elevated 1.[address] on prednisone 40 x5 days for gout flare. Last today July 31. Creatinine is normal now 0.9. -Uric acid 7.9. Once patient's gout flare is over ideally he should be started back on allopurinol to titrate dose to bring uric acid below 6. I will leave that up to his primary care doctor. -CPK normal. -At discharge patient will need meds to beds. - PT eval complete. Home exercise program recommended ? Stop phenobarbital ?Amlodipine 10 mg daily - CT right knee shows large joint effusion - Consult orthopedics. Full code DVT prophylaxis: SCD Transfer to floor Attestations Medical Necessity Statement*: Patient has a large joint effusion at this time which could be suggestive of gout. Arthrocentesis to be done today and fluid sent for cytology. Patient cannot bear weight on that leg. We will continue to monitor in the hospital. Anticipate possible discharge in next 48 hours. Coding Level of Care Code Acute Director Zone for Concetta Irwin Diagnoses Alcohol withdrawal F10.939 A-fib I48.91 Anxiety F41.9 Alcohol abuse F10.10
[2022-08-01] VITALS: BP 148/94; PULSE 66; RESP 17; TEMP 36.6; O2SAT 98
[2022-08-01] MEDS: acetaminophen 325 mg Tablet 650 MG PO (00:29)
[2022-08-01 04:00] VITALS: BP 151/88; PULSE 58; RESP 17; TEMP 36.6; O2SAT 96
[2022-08-01 05:02] LABS: Basophils % 0.1 %; Lymphocytes # 0.8 10^3/uL (0.8-4.8); Lymphocytes % 8.9 %; Mean Corpuscular HGB Conc 32.5 g/dL (30.0-36.0); Mean Corpuscular Hemoglobin 30.5 pg (28.0-34.0); Mean Corpuscular Volume 93.9 fl (80-94); Mean Platelet Volume 10.4 fL (7.4-10.4); Monocytes # 0.8 10^3/uL (0.2-0.9); Monocytes % 8.1 %; Neutrophils # 7.59 10^3/uL (1.8-7.7); Neutrophils % 82.5 %; Nucleated Red Blood Cells % 0 %; Platelet Count 237 10^3/cmm (130-400); Red Blood Count 4.26 10^6/uL (4.1-5.3); Red Cell Distribution Width 12.5 % (12.1-15.1); White Blood Count 9.2 10^3/uL (4.0-10.0)
[2022-08-01 05:33] LABS: Anion Gap 15.5 (5-19); Blood Urea Nitrogen 13 mg/dL (6-20); Calcium 8.7 mg/dL (8.5-10.5); Carbon Dioxide 25 mmol/L (22-29); Chloride 97 mmol/L (98-107); Glomerular Filtration Rate 103.2 mL/min (90-130); Glucose 161 mg/dL (65-115); Magnesium 2.4 mg/dL (1.7-2.3); Osmolality Calculated 280 mOsm/kg (285-295); Potassium 4.5 mmol/L (3.5-5.1); Sodium 133 mmol/L (136-145)
[2022-08-01 06:10] VITALS: PULSE 57
[2022-08-01 08:00] VITALS: BP 104/69; BP 131/80; PULSE 66; PULSE 68; RESP 16; TEMP 36.9; O2SAT 97
[2022-08-01] MEDS: amlodipine 5 mg Tablet 10 MG PO (09:49)
[2022-08-01] MEDS: metoprolol tartrate 50 mg Tablet 100 MG PO (09:49)
[2022-08-01] MEDS: multivitamin therapeutic Tablet 1 TAB PO (09:49)
[2022-08-01] MEDS: folic acid 1 mg Tablet PO (09:49)
[2022-08-01] MEDS: thiamine 100 mg Tablet PO (09:49)
[2022-08-01] MEDS: escitalopram 10 mg Tablet PO (09:49)
[2022-08-01] MEDS: pantoprazole DR 40 mg Tablet PO (09:49)
[2022-08-01 12:00] VITALS: BP 104/69; PULSE 68; RESP 16; TEMP 36.9; O2SAT 95
--- NOTE | 2022-08-01 12:14 | P.DS_ITS ---
Discharge Providers Date of Admission: 07/26/22 23:58 Date of Discharge: August 01, 2022 Attending Provider at Admission: Garrett Mason MD Attending Provider at Discharge: Anum Field MD Primary Care Provider: Farzad Flores DO Diagnoses at Discharge Discharge Diagnosis (1) Alcohol withdrawal: Status: Resolved (2) A-fib: Status: Resolved (3) Anxiety: Status: Acute (4) Alcohol abuse: Status: Acute Reason for Visit Reason for Visit: Chest pains, dizzy, SOB Brief History: Dexter Gonzalez is a 47 year old male past medical history of alcohol abuse, gout, hypertension, atrial fibrillation, not on anticoagulation presented to the hospital today for complaint of rapid heart rate.? Patient has tried to stop drinking in the past and was prescribed naltrexone injections but was unable to afford them therefore did not use any.? He takes metoprolol 12 return milligram twice daily at home.? He says he used to take anticoagulants in the past but stopped because of his drinking.? He says he has not had much to eat or drink in the last 3 to 4 days.? He has been dry heaving a lot and has vomited 6-7 times.? He states at times when he vomited he also noted some streaks of blood in there.? He also reports dark black stools for last few days.? He says the black stools are intermittent and not there all the time.? He also says he has been having decreased urine output.? He says he drinks vodka half a pint to a pint or more a day.? His last drink was at noon today.? He says he has periods of binge drinking where he drinks a lot.? 2 days ago he drank a bottle of rubbing alcohol about 500 cc.? And yesterday he drank a purrel 3 ounce and interlibrary loan services librarian bottle.? And that is because he did not have access to vodka.? Today however he drank vodka.? He says he has been hospitalized numerous times in various states in the past.? 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 His most recent admission was in January 2022 in [place] in [facility].? We will be requesting records.? At this time patient denies chest pain, shortness of breath or abdominal pain, diarrhea. ER course: Hemoglobin 18.4, WBC 12.3, chloride 96, sodium 136, CO2 19, anion gap 24.7, creatinine 1.5, troponin 24, 21, BNP 216.? Patient received clonidine 0.1x1, oral Ativan 2 mg x 2, 2.5 IV metoprolol titrate, phenobarb 60 mg IV x1, banana bag, promethazine 25 IM x1.? Chest x-ray no acute chest abnormality. Hospital Course Hospital Course Patient was initially admitted for A. fib with RVR but converted to sinus rhythm while he was in the ER.. He also has history of alcohol abuse. When he got admitted he revealed that he had drank hand interlibrary loan services librarian, rubbing alcohol and vodka within the last 48 hours of admission. Most recent drink was that morning. He says he was trying to quit drinking. He was on naltrexone injections but could not afford them therefore did not use any. He says he used to be on anticoagulant in the past but stopped because of his drinking and did not want to take them anymore. He also had nausea vomiting on admission. He was very dehydrated. Patient was admitted. Patient required multiple doses of IV phenobarbital in the ICU. Once he was better he started to complain of knee pain. He was placed on prednisone 40 x 5 days for gout flare. Patient did have a history of gout but was not taking allopurinol anymore. Knee initially got better but then worsened. Orthopedics was consulted after CT knee was performed which showed a large effusion. Knee was tapped. Synovial fluid analysis sent. WBC 25,000. No apparent crystals seen. Discussed with laborer wharf. Plan to send patient on prednisone 10 daily for another 7 days. This was most likely gout versus noninflammatory polyarthritis. Patient will follow up with rheumatology for further work-up. He is able to bear weight and not needing a walker or cane to walk. All the above discussed with patient and he was ag reeable to go home. Meds to beds were set up for the patient. Patient to discuss with primary care doctor for resumption of Eliquis. Lastly during this hospital stay patient was also started on low-dose losartan for hypertension. He will be following up with his PCP. Physical Exam Narrative: General: Alert oriented x3, patient seen sitting up in bed appearing comfortable at this time on room air HEENT: Normocephalic, atraumatic, EOMI, breathing normally on room air Cardio: Regular rate rhythm, normal S1-S2, Respiratory: Good bilateral air entry, no wheezes no rhonchi appreciated GI: Abdomen soft, nontender, nondistended, obese rounded abdomen, bowel sounds + Behavior: Appropriate and cooperative Extremities: No bilateral lower extremity edema, right knee nonedematous. Left knee nonedematous. Discharge Data Studies Completed and Pending Completed Studies During Hospitalization Category Date Time Status CT knee RT wo con* [id number] Routine Cat Scan 07/30/22 18:49 Completed XR chest 1V portable [id number] Stat Exams 07/26/22 12:29 Completed Pending at discharge Category Date Time Status Body Fluid Culture & GS Routine Lab 07/31/22 12:59 Results Radiology Impressions Chest X-Ray 07/26/22 12:29 IMPRESSION: No acute chest abnormality. Knee CT 07/30/22 18:49 IMPRESSION: 1. Negative for fracture or dislocation. 2. Large joint effusion. 3. Mild tricompartmental osteoarthritis of the knee. Laboratory Results WBC 9.2 10^3/uL (4.0-10.0) 08/01/22 04:42 RBC 4.26 10^6/uL (4.1-5.3) 08/01/22 04:42 Hgb 13.0 g/dL (11.7-16.6) 08/01/22 04:42 Hct 40.0 % (42.0-52.0) L 08/01/22 04:42 MCV 93.9 fl (80-94) 08/01/22 04:42 MCH 30.5 pg (28.0-34.0) 08/01/22 04:42 MCHC 32.5 g/dL (30.0-36.0) 08/01/22 04:42 RDW 12.5 % (12.1-15.1) 08/01/22 04:42 Plt Count 237 10^3/cmm (130-400) 08/01/22 04:42 MPV 10.4 fL (7.4-10.4) 08/01/22 04:42 Neut % (Auto) 82.5 % 08/01/22 04:42 Lymph % (Auto) 8.9 % 08/01/22 04:42 [place] % (Auto) 8.1 % 08/01/22 04:42 Eos % (Auto) 0.0 % 08/01/22 04:42 Baso % (Auto) 0.1 % 08/01/22 04:42 Neut # (Auto) 7.59 10^3/uL (1.8-7.7) 08/01/22 04:42 Lymph # (Auto) 0.8 10^3/uL (0.8-4.8) 08/01/22 04:42 [place] # (Auto) 0.8 10^3/uL (0.2-0.9) 08/01/22 04:42 Eos # (Auto) 0.0 10^3/uL (0.0-0.8) 08/01/22 04:42 Baso # (Auto) 0.0 10^3/uL (0.0-0.1) 08/01/22 04:42 Nucleated RBC % (auto) 0 % 08/01/22 04:42 Nucleated RBCs # 0.0 /100WBC 08/01/22 04:42 Sodium 133 mmol/L (136-145) L 08/01/22 04:42 Potassium 4.5 mmol/L (3.5-5.1) 08/01/22 04:42 Chloride 97 mmol/L (98-107) L 08/01/22 04:42 Carbon Dioxide 25 mmol/L (22-29) 08/01/22 04:42 Anion Gap 15.5 (5-19) 08/01/22 04:42 BUN 13 mg/dL (6-20) 08/01/22 04:42 Creatinine 0.8 mg/dL (0.7-1.2) 08/01/22 04:42 GFR Calculation 103.2 mL/min (90-130) 08/01/22 04:42 Glucose 161 mg/dL (65-115) H 08/01/22 04:42 Calculated Osmolality 280 mOsm/kg (285-295) L 08/01/22 04:42 Lactic Acid 1.8 mmol/L (0.5-2.2) 07/26/22 18:33 Uric Acid 7.9 mg/dL (3.4-7.0) H 07/27/22 16:10 Calcium 8.7 mg/dL (8.5-10.5) 08/01/22 04:42 Magnesium 2.4 mg/dL (1.7-2.3) H 08/01/22 04:42 Total Bilirubin 0.5 mg/dL (0.15-1.2) 07/27/22 02:27 AST 20 U/L (0-40) 07/27/22 02:27 ALT 15 U/L (0-41) 07/27/22 02:27 Alkaline Phosphatase 53 U/L (40-130) 07/27/22 02:27 Creatine Kinase 229 U/L (39-308) 07/27/22 16:10 Troponin T Baseline 24 ng/L (0-15) H 07/26/22 12:45 Troponin T 120 Minute 21.05 ng/L (0-15) H 07/26/22 14:53 Delta Troponin T -2.95 ABS# (0-10) L 07/26/22 14:53 Troponin T Hi Sens 6Hr 17.46 ng/L (0-15) H 07/26/22 18:33 Troponin T Hi Sens 6Hr Delta -6.54 ng/L (0-12) L 07/26/22 18:33 NT-Pro-B Natriuret Pep 216 pg/mL (0-125) H 07/26/22 12:45 Total Protein 6.1 g/dL (6.6-8.7) L 07/27/22 02:27 Albumin 3.6 g/dL (3.5-5.2) 07/27/22 02:27 Globulin 2.5 g/dL (1.3-4.6) 07/27/22 02:27 Lipase 25 U/L (13-60) 07/26/22 12:45 Urine Color Dark yellow (Yellow) 07/26/22 17:55 Urine Appearance Clear (CLEAR) 07/26/22 17:55 Urine pH 5 (5-7) 07/26/22 17:55 Ur Specific [place] 1.020 (1.005-1.030) 07/26/22 17:55 Urine Protein 1+ (Negative) H 07/26/22 17:55 Urine Glucose (UA) Norm (Normal) 07/26/22 17:55 Urine Ketones 2+ (Negative) H 07/26/22 17:55 Urine Blood Neg (Negative) 07/26/22 17:55 Urine Nitrate Negative (Negative) 07/26/22 17:55 Urine Bilirubin 2+ (Negative) H 07/26/22 17:55 Urine Urobilinogen 4 mg/dL (Negative) H 07/26/22 17:55 Ur Leukocyte Esterase Negative (Negative) 07/26/22 17:55 Urine RBC 0-4 /hpf (0-2) H 07/26/22 17:55 Urine WBC 5-10 /hpf (0-5) H 07/26/22 17:55 Ur Squamous Epith Cells 0-4 /hpf (0-5) H 07/26/22 17:55 Amorphous Sediment Not Reportable 07/26/22 17:55 Urine Bacteria 2+ /hpf (NONE) H 07/26/22 17:55 Hyaline Casts 15-25 /lpf H 07/26/22 17:55 Urine Mucus 2+ /hpf 07/26/22 17:55 Fluid Crystals See path consult 07/31/22 12:59 Synovial Color Pale yellow (PALE YELLOW) 07/31/22 12:59 Synovial Appearance Cloudy (CLEAR) 07/31/22 12:59 Synovial WBC 07703 /uL (0-150) H 07/31/22 12:59 Synovial RBC 3 10^3/uL (0-0) H 07/31/22 12:59 Synovial Mononuclear 1.341 10^3/uL 07/31/22 12:59 Synov Polynuclear WBCs 24.371 10^3/uL 07/31/22 12:59 Synovial Other Cells Not Reportable 07/31/22 12:59 Synovial Polynuclear % 94.800 % 07/31/22 12:59 Synovial Mononuclear % 5.200 % 07/31/22 12:59 Urine Opiates Screen Negative ng/mL (Negative) 07/29/22 09:45 Ur Barbiturates Screen Positive ng/mL (Negative) H 07/29/22 09:45 Ur Phencyclidine Scrn Negative ng/mL (Negative) 07/29/22 09:45 Ur Amphetamines Screen Negative ng/mL (Negative) 07/29/22 09:45 U Benzodiazepines Scrn Positive ng/mL (Negative) H 07/29/22 09:45 Urine Cocaine Screen Negative ng/mL (Negative) 07/29/22 09:45 U Marijuana (THC) Screen Negative ng/mL (Negative) 07/29/22 09:45 Ethyl Alcohol < 10 mg/dL (0-10) 07/26/22 14:53 Hepatitis A IgM Ab Non-reactive (Nonreactive) 07/27/22 16:10 Hep Bs Antigen Non-reactive (Nonreactive) 07/27/22 16:10 Hep Bs Antibody 3.7 (11.5-1000) L 07/27/22 16:10 Hep B Core Total Ab Non-reactive (Nonreactive) 07/27/22 16:10 Hepatitis C Antibody Non-reactive (Nonreactive) 07/27/22 16:10 Path Cons w/Slide Yes 07/31/22 12:59 Vitals Last Vital Signs Temp 98.4 F 08/01/22 08:00 Pulse 66 08/01/22 08:00 Resp 16 08/01/22 08:00 BP 131/80 08/01/22 08:00 Pulse Ox 97 08/01/22 08:00 O2 Del Method 08/01/22 08:00 Discharge Plan Discharge Patient Disposition: Home Condition: Stable Prescriptions: New losartan 50 mg tablet 25 mg PO DAILY 30 Days Qty: 30 0RF folic acid 1 mg Tablet 1 mg PO DAILY 30 Days Qty: 30 0RF Vitamin B-1 (mononitrate) 100 mg Tablet 100 mg PO DAILY 30 Days Qty: 30 0RF Thera 400 mcg Tablet 1 tab PO DAILY 30 Days Qty: 30 0RF Continued escitalopram oxalate 10 mg tablet 10 mg PO DAILY Qty: 30 1RF Vivitrol 380 mg suspension,extended rel recon 380 mg IM ONCE 28 Days Qty: 1 5RF Rx Instructions: 380mg IM q 4 weeks for alcohol abuse metoprolol tartrate 100 mg tablet 100 mg PO BID Qty: 180 3RF Discontinued potassium chloride [Klor-Con M10] 10 mEq tablet,ER particles/crystals 10 meq PO DAILY Qty: 30 0RF Discharge Orders: Discharge Order (Routine); Ordered 08/01/22 Ordered By: Anum Field Referrals: Aleksandra Emery MD [Physician] - 1 week (Dr. Emery's office will call you with your apointment date and time. ) Farzad Flores, [Primary Care Provider] - 08/10/22 12:00 pm Discharge Diet: Cardiac and Low Salt Discharge Activity: Increase activity as tolerated Patient Instructions: Prednisone (By mouth), Losartan (By mouth), Gout (GEN), Alcohol Withdrawal (GEN), Opioid Safety Activity Restrictions/Additional Instructions: Please follow up with laborer wharf and primary care doctor as advised. Your synovial fluid analysis was reviewed by orthopedic surgery and rheumatology. 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 Fluid culture is negative. I would highly advise you to follow-up with rheumatology for further work-up and management. I have placed you on prednisone 10 mg daily as per recommendations from rheumatology. If your symptoms worsens or new symptoms develop, please return to ER. Watch for fever, chills, increased swelling of knee/redness, unable to bear weigh on legs. Please refrain from drinking alcohol. Discharge Attestations Time Spent in Discharge Care*: less than 30 min Quality Metrics Clinical Quality Measures [ No reported AMI, CVA or VTE this stay] Coding Level of Care Code Acute g FW MA note Diagnoses Alcohol withdrawal F10.939 A-fib I48.91 Anxiety F41.9 Alcohol abuse F10.10
[2022-08-01 15:57] VITALS: BP 104/69; PULSE 68; RESP 16; TEMP 36.9; O2SAT 95
== END 2022-08-01 15:00 | disposition home or self-care (01) | DRG 897 ==
LOC: ER 17:12 → ICU 23:59 → MEDSURG 07-30 19:19
PROVIDERS: Emergency Medicine; Orthopaedic Surgery; Admitting Provider Family Medicine; Emergency Provider Family Medicine; PCP Family Medicine; Visit Provider Internal Medicine
DX: F10.139 Alcohol abuse with withdrawal, unspecified (principal); E87.2 Acidosis; T50.7X6A Underdosing of analeptics and opioid receptor antagonists, initial encounter; Z91.120 Patient's intentional underdosing of medication regimen due to financial hardship; Y90.0 Blood alcohol level of less than 20 mg/100 ml; I48.91 Unspecified atrial fibrillation; M1A.9XX0 Chronic gout, unspecified, without tophus (tophi); M25.461 Effusion, right knee; M25.562 Pain in left knee; E86.0 Dehydration; R11.2 Nausea with vomiting, unspecified; I10 Essential (primary) hypertension; R19.5 Other fecal abnormalities; T49.0X1A Poisoning by local antifungal, anti-infective and anti-inflammatory drugs, accidental (unintentional), initial encounter; T51.2X1A Toxic effect of 2-Propanol, accidental (unintentional), initial encounter; F41.9 Anxiety disorder, unspecified
CPT/HCPCS: 36415; 51798; 71045; 73700; 80048; 80053; 80306; 80307; 80503; 81001; 82274; 82550; 83605; 83690; 83735; 83880; 84484; 84550; 85025; 86705; 86706; 86709; 86803; 87070; 87075; 87086; 87205; 87340; 89050; 93005; 96372; 96374; 97116; 97161; 99285; C9113; J2270; J2550; J2920; J3411; J3490; J7030; J7512

== ENCOUNTER 2022-08-28 08:06 | Emergency (ER) | payer SELFPAY ==
[2022-08-28 08:07] VITALS: BP 133/83; PULSE 101; RESP 16; TEMP 36.8; O2SAT 94; BMI 40.6
--- NOTE | 2022-08-28 08:14 | ECG_ITS ---
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 Measurements Intervals [place] Rate: 111 P: NE: QRS: 3 QRSD: 101 T: 12 QT: 333 QTc: 453 Interpretive Statements SINUS TACHYCARDIA Compared to ECG 07/26/2022 18:17:41 NO SIGNIFICANT CHANGES Electronically Signed On 08-28-2022 17:19:57 CDT by Rafat Galarza M.D. [email or web address] [email or web address] the [email or web address] peninsula.[email or web address]/[id number] f
--- NOTE | 2022-08-28 08:14 | XRR_ITS ---
PROCEDURE INFORMATION: Exam: XR Chest Exam date and time: 08/28/2022 8:21 AM Age: 47 years old Clinical indication: Angina pectoris; Patient HX: Stabbing chest pain over the left breast that started this morning and has not let up any at all. Pain level is at an 8 and sharp TECHNIQUE: Imaging protocol: Radiologic exam of the chest. Views: 1 view. COMPARISON: CR XR chest 1V portable [id number] 07/26/2022 12:52 PM FINDINGS: Lungs: No pulmonary vascular congestion, pulmonary edema or pneumonia. Pleural spaces: No pleural effusion or pneumothorax. Heart/Mediastinum: The cardiac silhouette is not enlarged. Vasculature: The thoracic aorta is ectatic and/or tortuous. Bones/joints: No rib fracture visualized. There are multilevel bridging osteophytes in the spine. XR/XR chest 1V portable [id number] IMPRESSION: No acute finding.
[2022-08-28 08:23] LABS: Basophils # 0.1 10^3/uL (0.0-0.1); Basophils % 0.8 %; Eosinophils # 0.1 10^3/uL (0.0-0.8); Eosinophils % 0.8 %; Hematocrit 42.3 % (42.0-52.0); Hemoglobin 13.8 g/dL (11.7-16.6); Lymphocytes # 1.9 10^3/uL (0.8-4.8); Lymphocytes % 24.4 %; Mean Corpuscular HGB Conc 32.6 g/dL (30.0-36.0); Mean Corpuscular Hemoglobin 29.7 pg (28.0-34.0); Mean Platelet Volume 9.9 fL (7.4-10.4); Monocytes # 0.4 10^3/uL (0.2-0.9); Monocytes % 5.2 %; Neutrophils # 5.17 10^3/uL (1.8-7.7); Neutrophils % 68.3 %; Nucleated Red Blood Cells % 0 %; Platelet Count 288 10^3/cmm (130-400); Red Blood Count 4.65 10^6/uL (4.1-5.3); Red Cell Distribution Width 12.5 % (12.1-15.1); White Blood Count 7.6 10^3/uL (4.0-10.0)
[2022-08-28 08:50] LABS: Alanine Aminotransferase 28 U/L (0-41); Albumin Level 4.1 g/dL (3.5-5.2); Alkaline Phosphatase 73 U/L (40-130); Anion Gap 19.6 (5-19); Aspartate Amino Transferase 22 U/L (0-40); Blood Urea Nitrogen 12 mg/dL (6-20); Calcium 8.9 mg/dL (8.5-10.5); Carbon Dioxide 24 mmol/L (22-29); Chloride 101 mmol/L (98-107); Globulin 2.9 g/dL (1.3-4.6); Glomerular Filtration Rate 120.4 mL/min (90-130); Glucose 125 mg/dL (65-115); Osmolality Calculated 293 mOsm/kg (285-295); Potassium 3.6 mmol/L (3.5-5.1); Sodium 141 mmol/L (136-145); Total Bilirubin 0.3 mg/dL (0.15-1.2)
[2022-08-28 08:52] LABS: Troponin(5th) Baseline 7 ng/L (0-15)
[2022-08-28 08:57] LABS: Alcohol Level 94 mg/dL (0-10)
--- NOTE | 2022-08-28 09:26 | PC.NURSE ---
pt laying in bed on his stomach, asleep.
[2022-08-28 09:50] LABS: Lipase 23 U/L (13-60)
[2022-08-28] MEDS: lidocaine 2% viscous 15 ML, aluminum-mag hydrox-simethicon 30 ML, sucralfate oral liq 1 GM PO (10:03)
--- NOTE | 2022-08-28 10:14 | ECG_ITS ---
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 Measurements Intervals [place] Rate: 98 P: 54 ID: [id number] QRS: 12 QRSD: 101 T: 25 QT: 345 QTc: 441 Interpretive Statements SINUS RHYTHM Compared to ECG 08/28/2022 08:11:51 Atrial flutter no longer present Electronically Signed On 08-28-2022 17:24:01 CDT by Rafat Galarza M.D. [email or web address] health upper valley medical centerSomeecards/store/OM/[id number]
--- NOTE | 2022-08-28 11:23 | W.ED.CHESTPA ---
HPI - Chest Pain General: Chief Complaint: Chest Pain Stated Complaint: CHEST PAIN Time Seen by Provider: 08/28/22 08:10 Source: patient Mode of arrival: ambulatory History of Present Illness: 47-year-old male who presents emergency room with complaints of epigastric discomfort with nausea and vomiting. Radiates up into his chest. Patient relates he is a heavy drinker and recently restarted drinking and drank 1/5 of hard liquor last night. He is last drink was a few hours prior to arrival. She denies any hematemesis coffee-ground emesis no known history of coronary artery disease MD complaint: chest pain Timing of current episode: episodic Onset: during rest Pain radiation: none Severity: moderate Quality: tightness Relieving factors: nothing Exacerbating factors: nothing Associated symptoms: Deny abdominal pain, diaphoresis, dyspnea, fever(s), leg edema, nausea, palpitations, sense of impending doom, syncope or vomiting Treatment prior to arrival: none Review of Systems Const: Denies: fever(s) or diaphoresis Card: Denies: chest pain, palpitations or syncope Resp: Denies: dyspnea GI: Denies: abdominal pain, nausea or vomiting : Denies: flank pain, difficulty urinating, dysuria, urinary frequency, urinary urgency or urinary hesitancy PFSH ED PFSH: Medical History HTN (hypertension) Surgical History Bariatric surgery status Family History Mother Hypertension Father Hypertension Denies family history of Diabetes Dementia Hyperlipidemia Chronic kidney disease (CKD) Suicide Lung disease Cancer Stroke Social History Smoking and tobacco status: never smoked Alcohol intake: current Alcohol intake frequency: few times a month Alcohol type: hard liquor Marital status: Single Highest education level completed: Some College, No Degree service: No Current occupational status: employed Current gender identity: Male Physical Exam Const: GENERAL APPEARANCE: cooperative and comfortable ORIENTATION/CONSCIOUSNESS: Yes awake, Yes oriented to person, Yes oriented to place and Yes oriented to time HENMT: COMMON NORMALS: normocephalic, atraumatic, hearing grossly normal bilaterally, external ears normal, EAC's normal, TM's normal bilaterally, Normal nasal mucous membranes and turbinates present, moist oral mucous membranes and oropharynx normal HEAD & SCALP: normocephalic and atraumatic NOSE: Normal nasal mucous membranes and turbinates present EXTERNAL EAR: Yes external ears normal EXTERNAL AUDITORY CANAL: EAC's normal TYMPANIC MEMBRANE: TM's normal bilaterally Eye: COMMON NORMALS: Equal, round and reactive pupils present, EOMs intact bilaterally, conjunctivae normal and no scleral icterus CONJUNCTIVA: Yes conjunctivae normal PUPIL: Yes Equal, round and reactive pupils present Resp: COMMON NORMALS: normal respiratory effort, No retractions, No use of accessory muscles and clear to auscultation bilaterally AUSCULTATION: clear to auscultation bilaterally Cardio: COMMON NORMALS: regular rate, regular rhythm and No murmurs present (Cardio) RATE: regular rate RHYTHM: regular rhythm GI: COMMON NORMALS: Soft to palpation and No hepatosplenomegaly present AUSCULTATION: Yes normoactive bowel sounds PALPATION: Yes Soft to palpation, No Tenderness to palpation present (GI), No Guarding due to palpation present (GI) and Yes No hepatosplenomegaly present Extremity: COMMON NORMALS: normal to inspection, capillary refill normal, no clubbing, cyanosis or edema, no calf tenderness and no pedal edema Neuro: SENSORIUM/ORIENTATION: Yes oriented to person, Yes oriented to place and Yes oriented to time Skin: COMMON NORMALS: no rashes or lesions noted GENERAL SKIN EXAM: no rashes or lesions noted Course Vital Signs: Vital signs: Vital Signs Temperature 98.2 F 08/28/22 08:07 Pulse Rate 101 H 08/28/22 08:07 Respiratory Rate 16 08/28/22 08:07 Blood Pressure 133/83 08/28/22 08:07 Pulse Oximetry 94 08/28/22 08:07 Oxygen Delivery Me thod 08/28/22 08:07 MDM - Chest Pain Medical Decision Making Labs reviewed. EKG troponin unremarkable. Patient is feeling better Spectazole and alcoholic gastritis. Strongly. Encourage patient to abstain from alcohol recommended AA or outpatient treatment such as [facility]. Patient does indicate he wishes to quit. Started on Protonix. Medical Records I reviewed the patient's medical records. Lab Data I reviewed the patient's lab results. : 08/28/22 08:17 08/28/22 08:17 Radiology Impressions Chest X-Ray 08/28/22 08:14 IMPRESSION: No acute finding. Laboratory Results WBC 7.6 10^3/uL (4.0-10.0) 08/28/22 08:17 RBC 4.65 10^6/uL (4.1-5.3) 08/28/22 08:17 Hgb 13.8 g/dL (11.7-16.6) 08/28/22 08:17 Hct 42.3 % (42.0-52.0) 08/28/22 08:17 MCV 91.0 fl (80-94) 08/28/22 08:17 MCH 29.7 pg (28.0-34.0) 08/28/22 08:17 MCHC 32.6 g/dL (30.0-36.0) 08/28/22 08:17 RDW 12.5 % (12.1-15.1) 08/28/22 08:17 Plt Count 288 10^3/cmm (130-400) 08/28/22 08:17 MPV 9.9 fL (7.4-10.4) 08/28/22 08:17 Neut % (Auto) 68.3 % 08/28/22 08:17 Lymph % (Auto) 24.4 % 08/28/22 08:17 [place] % (Auto) 5.2 % 08/28/22 08:17 Eos % (Auto) 0.8 % 08/28/22 08:17 Baso % (Auto) 0.8 % 08/28/22 08:17 Neut # (Auto) 5.17 10^3/uL (1.8-7.7) 08/28/22 08:17 Lymph # (Auto) 1.9 10^3/uL (0.8-4.8) 08/28/22 08:17 [place] # (Auto) 0.4 10^3/uL (0.2-0.9) 08/28/22 08:17 Eos # (Auto) 0.1 10^3/uL (0.0-0.8) 08/28/22 08:17 Baso # (Auto) 0.1 10^3/uL (0.0-0.1) 08/28/22 08:17 Nucleated RBC % (auto) 0 % 08/28/22 08:17 Nucleated RBCs # 0.0 /100WBC 08/28/22 08:17 Sodium 141 mmol/L (136-145) 08/28/22 08:17 Potassium 3.6 mmol/L (3.5-5.1) 08/28/22 08:17 Chloride 101 mmol/L (98-107) 08/28/22 08:17 Carbon Dioxide 24 mmol/L (22-29) 08/28/22 08:17 Anion Gap 19.6 (5-19) H 08/28/22 08:17 BUN 12 mg/dL (6-20) 08/28/22 08:17 Creatinine 0.7 mg/dL (0.7-1.2) 08/28/22 08:17 GFR Calculation 120.4 mL/min (90-130) 08/28/22 08:17 Glucose 125 mg/dL (65-115) H 08/28/22 08:17 Calculated Osmolality 293 mOsm/kg (285-295) 08/28/22 08:17 Calcium 8.9 mg/dL (8.5-10.5) 08/28/22 08:17 Total Bilirubin 0.3 mg/dL (0.15-1.2) 08/28/22 08:17 AST 22 U/L (0-40) 08/28/22 08:17 ALT 28 U/L (0-41) 08/28/22 08:17 Alkaline Phosphatase 73 U/L (40-130) 08/28/22 08:17 Troponin T Baseline 7 ng/L (0-15) 08/28/22 08:17 Troponin T 120 Minute 6.00 ng/L (0-15) 08/28/22 09:58 Total Protein 7.0 g/dL (6.6-8.7) 08/28/22 08:17 Albumin 4.1 g/dL (3.5-5.2) 08/28/22 08:17 Globulin 2.9 g/dL (1.3-4.6) 08/28/22 08:17 Lipase 23 U/L (13-60) 08/28/22 08:17 Ethyl Alcohol 94 mg/dL (0-10) H 08/28/22 08:17 Discharge Plan Discharge Patient Disposition: Home Clinical Impression: Gastritis, Alcohol abuse Condition: Stable Prescriptions: New Protonix 40 mg tablet,delayed release (DR/EC) 40 mg PO DAILY Qty: 30 0RF No Action escitalopram oxalate 10 mg tablet 10 mg PO DAILY Qty: 30 1RF Vivitrol 380 mg suspension,extended rel recon 380 mg IM ONCE 28 Days Qty: 1 5RF Rx Instructions: 380mg IM q 4 weeks for alcohol abuse metoprolol tartrate 100 mg tablet 100 mg PO BID Qty: 180 3RF losartan 50 mg tablet 25 mg PO DAILY 30 Days Qty: 30 0RF folic acid 1 mg Tablet 1 mg PO DAILY 30 Days Qty: 30 0RF thiamine mononitrate (vit B1) [Vitamin B-1 (mononitrate)] 100 mg Tablet 100 mg PO DAILY 30 Days Qty: 30 0RF multivitamin with folic acid [Thera] 400 mcg Tablet 1 tab PO DAILY 30 Days Qty: 30 0RF Discharge Orders: Discharge ED (Routine); Ordered 08/28/22 Ordered By: Lang Guadarrama Referrals: Farzad Flores, [Primary Care Provider] - Discharge Diet: Usual diet Discharge Activity: Increase activity as tolerated Patient Instructions: Abuse of Alcohol (ED), Opioid Safety, Pain Management Activity Restrictions/Additional Instructions: Start Protonix once daily. Abstain from alcohol. Strongly encouraged to follow-up with [facility] or [facility] or some other outpatient programs to assist in alcohol abstinence. If you have significant change in symptoms worsening symptoms return to the emergency room. Coding Level of Care Code ED Program Manufacturing Leader for [employer] Fwdodie Exam Comprehensive
[2022-08-28 11:42] LABS: Troponin 5 2HR Delta -1 ABS# (0-10)
== END 2022-08-28 11:54 | disposition home or self-care (01) ==
PROVIDERS: Emergency Provider Family Medicine; PCP Family Medicine
DX: K29.70 Gastritis, unspecified, without bleeding (principal); F10.10 Alcohol abuse, uncomplicated; I10 Essential (primary) hypertension
CPT/HCPCS: 36415; 71045; 80053; 80307; 83690; 84484; 85025; 93005; 99285

== ENCOUNTER 2022-08-29 11:28 | Emergency (ER) | payer SELFPAY ==
[2022-08-29 11:35] VITALS: BP 132/84; PULSE 100; RESP 16; TEMP 36.4; O2SAT 98; BMI 39.5
--- NOTE | 2022-08-29 11:45 | ECG_ITS ---
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 Measurements Intervals [place] Rate: 106 P: 44 ID: [id number] QRS: -3 QRSD: 104 T: 33 QT: 337 QTc: 449 Interpretive Statements SINUS TACHYCARDIA Compared to ECG 08/28/2022 10:22:11 Sinus rhythm no longer present Electronically Signed On 08-30-2022 5:53:11 CDT by Luly Castro M.D. [id number]
--- NOTE | 2022-08-29 11:45 | XRR_ITS ---
PROCEDURE INFORMATION: Exam: XR Chest Exam date and time: 08/29/2022 11:57 AM Age: 47 years old Clinical indication: Left-sided; Patient HX: Chest pain/sob TECHNIQUE: Imaging protocol: Radiologic exam of the chest. Views: 1 view. COMPARISON: CR XR chest 1V portable [id number] 08/28/2022 8:21 AM FINDINGS: Lungs: Lungs are well aerated without a focal area of consolidation. Pleural spaces: Unremarkable. No pleural effusion. No pneumothorax. Heart/Mediastinum: The cardiac silhouette appears enlarged, some of which is magnification related to the AP projection. Bones/joints: Unremarkable. XR/XR chest 1V portable [id number] IMPRESSION: Lungs are well aerated without a focal area of consolidation.
[2022-08-29 11:52] VITALS: BP 153/101; PULSE 108; RESP 18; O2SAT 96
--- NOTE | 2022-08-29 12:04 | ED_ITS ---
HPI - Chest Pain General: Chief Complaint: Chest Pain Stated Complaint: chest pain, SOB Time Seen by Provider: 08/29/22 12:04 Source: patient Mode of arrival: ambulatory Limitations: no limitations History of Present Illness: This patient returns to the emergency department by private vehicle. He was seen and evaluated yesterday for chest pain symptoms and had low risk chest pain ascertained at discharge with a history of daily alcohol use with presumption that his symptoms may have been due to alcoholic or other related gastritis. He returns today states his pain returned yesterday late afternoon and continued throughout the night and is still present today. He states it is an 8 out of 10 and its located in his lower chest upper abdomen with some radiation to his upper chest. States its burning and uncomfortable. He states he ate a hamburger yesterday which did not change his pain he states he has not taken any medications even those that were prescribed for him yesterday. Triage note is provides information that he was unable to obtain those medications prescribed yesterday. He admits to being a daily alcohol drinker. He denies any history of heart problems but states he does have high blood pressure and he takes those medications faithfully. He denies any black tarry stools or blood in his stools. He denies any emesis, fever etc. Denies any exposure to infectious disease. He denies trauma. MD complaint: chest pain Associated symptoms: Deny dyspnea, fever(s), nausea, palpitations, syncope or vomiting Review of Systems Const: Denies: fever(s) or chills Eyes: Denies: change in vision ENMT: Denies: throat pain, odynophagia or ear discharge Card: Denies: palpitations, syncope or pre-syncope Resp: Denies: dyspnea, productive cough or non-productive cough GI: Denies: nausea, vomiting, diarrhea, hematochezia or melena : Denies: flank pain, difficulty urinating, dysuria or urinary frequency Musc: Denies: neck pain, back pain, extremity pain or extremity swelling Skin/Breast: Denies: rash or pruritus Neuro: Denies: headache(s), numbness in extremities, weakness in extremities, dizziness, vertigo or confusion Psych: Reports: anxiety [facility] ED PFSH: Medical History HTN (hypertension) Surgical History Bariatric surgery status Family History Mother Hypertension Father Hypertension Denies family history of Diabetes Dementia Hyperlipidemia Chronic kidney disease (CKD) Suicide Lung disease Cancer Stroke Social History Smoking and tobacco status: never smoked Alcohol intake: current Alcohol intake frequency: few times a month Alcohol type: hard liquor Marital status: Single Highest education level completed: Some College, No Degree service: No Current occupational status: employed Current gender identity: Male Physical Exam Narrative: EXAM NARRATIVE: Patient makes good eye contact. Speech is goal-directed. He is cooperative. He appears to be reasonably comfortable. Const: COMMON NORMALS: no acute distress, patient oriented x3 and no limitations GENERAL APPEARANCE: cooperative and comfortable NUTRITIONAL APPEARANCE: overweight HENMT: COMMON NORMALS: normocephalic, atraumatic, Normal nasal mucous membranes and turbinates present and moist oral mucous membranes HEAD & SCALP: normocephalic and atraumatic NOSE: Normal nasal mucous membranes and turbinates present Eye: COMMON NORMALS: Equal, round and reactive pupils present, EOMs intact bilaterally, conjunctivae normal and no scleral icterus CONJUNCTIVA: Yes conjunctivae normal PUPIL: Yes Equal, round and reactive pupils present Neck/C-Spine: COMMON NORMALS: full ROM, no lymphadenopathy, supple and no JVD Chest: COMMONS NORMALS: normal inspection of the chest and normal palpation of entire chest wall OTHER: Symptoms were not reproduced by twisting and turning of trunk or abduction of arms at shoulders. Resp: COMMON NORMALS: normal respiratory effort, No use of accessory muscles and clear to auscultation bilaterally EFFORT & INSPECTION: Yes able to speak in complete sentences AUSCULTATION: clear to auscultation bilaterally Cardio: COMMON NORMALS: no JVD, regular rate, No murmurs present (Cardio) and Peripheral pulses 2+ throughout RATE: regular rate PERIPHERAL PULSES: Peripheral pulses 2+ throughout GI: COMMON NORMALS: Soft to palpation, no masses and no bruits AUSCULTATION: Yes Hyperactive bowel sounds present PALPATION: Yes Soft to palpation OTHER: Epigastric tenderness to palpation. : COMMON NORMALS: Yes no CVA tenderness BLADDER/KIDNEY EXAM: Yes no CVA tenderness Back/Pelvis: COMMON NORMALS: no CVA tenderness, thoracic and lumbar spine normal to inspection, no thoracic nor lumbar tenderness, thoraco-lumbar ROM normal and straight leg raise negative bilaterally Extremity: COMMON NORMALS: normal to inspection, full ROM, capillary refill normal, no calf tenderness and no pedal edema Neuro: COMMON NORMALS: patient oriented x3, moves all extremities and no sensory deficits noted CRANIAL NERVES: Yes CN normal except as noted SPEECH: speech normal Psych: COMMON NORMALS: mental status grossly normal, Normal thought process present and cooperative THOUGHT PROCESS: Normal thought process present Skin: COMMON NORMALS: no rashes or lesions noted, no wounds and turgor normal GENERAL SKIN EXAM: no rashes or lesions noted and turgor normal Course Reevaluation(s): Reevaluation #1: Patient was discovered to have remnants of 1/5 of vodka on his person by ER staff. This was removed from him while in the emergency department. Clinically stable. Awaiting CTA results. Initial troponin is 6 ng/L which is reassuring. Serial EKGs thus far have been reassuring. Time: 14:27 Reevaluation #2: I was just informed by nursing staff the patient decided to leave the emergency department. I was able to return to his room and interact with him and discuss current findings and their implications as well as discussed that we have not completed his work-up. He will he acknowledges our discussion and is able to articulate that he does admit to having a problem with alcohol. He is aware that continued drinking are going to lead to additional health problems. He is also aware that we do not have all his results available to us at this time. He was observed to ambulate about the emergency department in a normal fashion. He is speech is fluent and goal-directed and he was told that he is welcome to return to the emergency department anytime. He admits to me that he is not operating machinery or driving a car etc. at this time. n.b. CTA chest abdomen pelvis suggest returned and is unremarkable for any acute pathological findings at this time to include great vessel disease, etc. Time: 14:31 Vital Signs: Vital signs: Vital Signs Temperature 97.6 F 08/29/22 11:35 Pulse Rate 108 H 08/29/22 11:52 Respiratory Rate 18 08/29/22 11:52 Blood Pressure 153/101 08/29/22 11:52 Pulse Oximetry 96 10/18/22 11:52 Oxygen Delivery Me thod 08/29/22 11:35 MDM - Chest Pain Medical Decision Making Patient returns to the emergency department with subjective complaints of lower chest and epigastric discomfort. Says been present for at least 12 hours prior to arrival. EKGs as well as troponins obtained here were reassuring. CTA was obtained which was also reassuring. Does admit to continued alcohol use and was noted to have alcohol on his person while in the emergency department. Remained clinically stable without any evidence of pertubation in his vital signs or other findings of concern. The patient decided that he was ready to leave the emergency department and did so while acknowledging incomplete work-up, the need to stop drinking alcohol and notably was capable and had intact decision-making at this time. Medical Records I reviewed the patient's medical records. Lab Data I reviewed the patient's lab results. : 08/29/22 13:00 08/29/22 13:00 Radiology Impressions Chest X-Ray 08/29/22 11:45 IMPRESSION: Lungs are well aerated without a focal area of consolidation. Laboratory Results WBC 5.6 10^3/uL (4.0-10.0) 08/29/22 13:00 RBC 5.16 10^6/uL (4.1-5.3) 08/29/22 13:00 Hgb 15.7 g/dL (11.7-16.6) 08/29/22 13:00 Hct 51.4 % (42.0-52.0) 08/29/22 13:00 MCV 99.6 fl (80-94) H D 08/29/22 13:00 MCH 30.4 pg (28.0-34.0) 08/29/22 13:00 MCHC 30.5 g/dL (30.0-36.0) D 08/29/22 13:00 RDW 12.6 % (12.1-15.1) 08/29/22 13:00 Plt Count 285 10^3/cmm (130-400) 08/29/22 13:00 MPV 10.0 fL (7.4-10.4) 08/29/22 13:00 Neut % (Auto) 59.7 % 08/29/22 13:00 Lymph % (Auto) 32.7 % 08/29/22 13:00 Logan % (Auto) 5.6 % 08/29/22 13:00 Eos % (Auto) 0.0 % 08/29/22 13:00 Baso % (Auto) 1.1 % 08/29/22 13:00 Neut # (Auto) 3.32 10^3/uL (1.8-7.7) 08/29/22 13:00 Lymph # (Auto) 1.8 10^3/uL (0.8-4.8) 08/29/22 13:00 Logan # (Auto) 0.3 10^3/uL (0.2-0.9) 08/29/22 13:00 Eos # (Auto) 0.0 10^3/uL (0.0-0.8) 08/29/22 13:00 Baso # (Auto) 0.1 10^3/uL (0.0-0.1) 08/29/22 13:00 Nucleated RBC % (auto) 0 % 08/29/22 13:00 Nucleated RBCs # 0.0 /100WBC 08/29/22 13:00 Sodium 137 mmol/L (136-145) 08/29/22 13:00 Potassium 3.8 mmol/L (3.5-5.1) 08/29/22 13:00 Chloride 98 mmol/L (98-107) 08/29/22 13:00 Carbon Dioxide 20 mmol/L (22-29) L 08/29/22 13:00 Anion Gap 22.8 (5-19) H 08/29/22 13:00 BUN 9 mg/dL (6-20) 08/29/22 13:00 Creatinine 0.8 mg/dL (0.7-1.2) 08/29/22 13:00 GFR Calculation 103.2 mL/min (90-130) 08/29/22 13:00 Glucose 118 mg/dL (65-115) H 08/29/22 13:00 Calculated Osmolality 284 mOsm/kg (285-295) L 08/29/22 13:00 Calcium 8.7 mg/dL (8.5-10.5) 08/29/22 13:00 Total Bilirubin 0.3 mg/dL (0.15-1.2) 08/29/22 13:00 AST 33 U/L (0-40) 08/29/22 13:00 ALT 33 U/L (0-41) 08/29/22 13:00 Alkaline Phosphatase 82 U/L (40-130) 08/29/22 13:00 Troponin T Baseline 6 ng/L (0-15) 08/29/22 13:00 Total Protein 7.4 g/dL (6.6-8.7) 08/29/22 13:00 Albumin 4.2 g/dL (3.5-5.2) 08/29/22 13:00 Globulin 3.2 g/dL (1.3-4.6) 08/29/22 13:00 Ethyl Alcohol 219 mg/dL (0-10) H 08/29/22 13:00 EKG Data EKG 1: I personally reviewed and interpreted this EKG as follows: Interpretation: Resting EKG reveals a sinus tachycardia 106 bpm. Normal intervals, normal axis, normal QTC. No acute ST-T wave changes noted at this time. EKG 2: I personally reviewed and interpreted this EKG as follows: Interpretation: Second EKG this visit revealed a ventricular rate of 89 bpm. Normal sinus rhythm. Normal intervals, normal axis, no acute ST-T wave changes noted. Discharge Plan Discharge Patient Disposition: Home Clinical Impression: Alcohol abuse, Gastritis, Chest pain Condition: Stable Prescriptions: No Action escitalopram oxalate 10 mg tablet 10 mg PO DAILY Qty: 30 1RF Vivitrol 380 mg suspension,extended rel recon 380 mg IM ONCE 28 Days Qty: 1 5RF Rx Instructions: 380mg IM q 4 weeks for alcohol abuse metoprolol tartrate 100 mg tablet 100 mg PO BID Qty: 180 3RF Protonix 40 mg tablet,delayed release (DR/EC) 40 mg PO DAILY Qty: 30 0RF losartan 50 mg tablet 25 mg PO DAILY 30 Days Qty: 30 0RF folic acid 1 mg Tablet 1 mg PO DAILY 30 Days Qty: 30 0RF thiamine mononitrate (vit B1) [Vitamin B-1 (mononitrate)] 100 mg Tablet 100 mg PO DAILY 30 Days Qty: 30 0RF multivitamin with folic acid [Thera] 400 mcg Tablet 1 tab PO DAILY 30 Days Qty: 30 0RF Discharge Orders: Discharge ED (Routine); Ordered 08/29/22 Ordered By: Raj Johnson Referrals: Farzad Flores, [Primary Care Provider] - Discharge Diet: Advance as tolerated Discharge Activity: Increase activity as tolerated Patient Instructions: Opioid Safety, Pain Management Activity Restrictions/Additional Instructions: Obtain the prescriptions previously prescribed to help with your stomach and take those as prescribed. Take your usual medications otherwise. Do not drink alcohol. Continue drinking alcohol can result in worsening or new health problems. You are welcome to return to the emergency department anytime for reevaluation or ongoing symptoms. 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
--- NOTE | 2022-08-29 12:20 | CT_ITS ---
WS: [id number] CT CHEST, ABDOMEN, AND PELVIS TECHNIQUE: Contrast-enhanced CT of the chest, abdomen, and pelvis with coronal and sagittal reformatt ed images. CLINICAL INFORMATION: chest and epigastric pain COMPARISON: None. DLP: 2062.[address] scans at [facility] use at least one of these dose optimization techniques: automated e xposure control; mA and/or kV adjustment per patient size (includes targeted exams where dose is matc hed to clinical indication); or iterative reconstruction. CT CHEST: Both lungs are well aerated. No acute pulmonary infiltrates. No focal pneumonia or pleural fluid. Nor mal caliber thoracic aorta. Proximal main pulmonary arteries appear normal. No axillary lymphadenopat hy. Normal thyroid gland. Normal caliber thoracic aorta. CT ABDOMEN AND PELVIS: Hepatomegaly diffuse fatty infiltration. Normal gallbladder. Normal portal vein and splenic vein. Ria or postoperative changes gastric bypass. No evidence of bowel obstruction. No free air. Adrenal gland s are normal. Normal spleen. Normal pancreatic parenchymal enhancement. Normal portal vein and spleni c vein. Incidental RIGHT renal cysts. No hydronephrosis in either kidney. Normal ureteral excretion o n the delayed images. Normal caliber abdominal aorta. Celiac and SMA are patent. No evidence of high-grade small or large b owel obstruction. Normal lumbar spine. Chronic bilateral pars defects L5-S1. No significant anterolis thesis. Mild disc bulging L5-S1. CT/CT chest abd pel w con* IMPRESSION: 1. Both lungs are well aerated. No acute pulmonary infiltrates. 2. Prior postoperative changes gastric bypass. No evidence of fluid collection or bowel obstruction. 3. Hepatomegaly with diffuse fatty infiltration liver. 4. No hydronephrosis in either kidney. 5. Bilateral pars defects L5-S1.
[2022-08-29 13:08] LABS: Basophils # 0.1 10^3/uL (0.0-0.1); Basophils % 1.1 %; Hematocrit 51.4 % (42.0-52.0); Hemoglobin 15.7 g/dL (11.7-16.6); Lymphocytes # 1.8 10^3/uL (0.8-4.8); Lymphocytes % 32.7 %; Mean Corpuscular HGB Conc 30.5 g/dL (30.0-36.0); Mean Corpuscular Hemoglobin 30.4 pg (28.0-34.0); Mean Corpuscular Volume 99.6 fl (80-94); Monocytes # 0.3 10^3/uL (0.2-0.9); Monocytes % 5.6 %; Neutrophils # 3.32 10^3/uL (1.8-7.7); Neutrophils % 59.7 %; Nucleated Red Blood Cells % 0 %; Platelet Count 285 10^3/cmm (130-400); Red Blood Count 5.16 10^6/uL (4.1-5.3); Red Cell Distribution Width 12.6 % (12.1-15.1); White Blood Count 5.6 10^3/uL (4.0-10.0)
[2022-08-29] MEDS: sodium chloride 0.9% 1,000 ML 150 ML IV (13:08)
[2022-08-29] MEDS: pantoprazole 40 mg SDV IVP (13:09)
[2022-08-29 13:11] LABS: Slide Review Slide Review Perform
[2022-08-29 13:36] LABS: Troponin(5th) Baseline 6 ng/L (0-15)
[2022-08-29 13:38] LABS: Alanine Aminotransferase 33 U/L (0-41); Albumin Level 4.2 g/dL (3.5-5.2); Alcohol Level 219 mg/dL (0-10); Alkaline Phosphatase 82 U/L (40-130); Blood Urea Nitrogen 9 mg/dL (6-20); Calcium 8.7 mg/dL (8.5-10.5); Carbon Dioxide 20 mmol/L (22-29); Chloride 98 mmol/L (98-107); Globulin 3.2 g/dL (1.3-4.6); Glomerular Filtration Rate 103.2 mL/min (90-130); Glucose 118 mg/dL (65-115); Osmolality Calculated 284 mOsm/kg (285-295); Sodium 137 mmol/L (136-145); Total Bilirubin 0.3 mg/dL (0.15-1.2); Total Protein 7.4 g/dL (6.6-8.7)
[2022-08-29 13:41] LABS: Anion Gap 22.8 (5-19); Potassium 3.8 mmol/L (3.5-5.1)
[2022-08-29 13:42] LABS: Aspartate Amino Transferase 33 U/L (0-40)
[2022-08-29] MEDS: iohexol 350 mg/mL 100 mL Btl IV (14:01)
--- NOTE | 2022-08-29 14:17 | ECG_ITS ---
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 Measurements Intervals [place] Rate: 89 P: 59 DE: 179 QRS: 12 QRSD: 102 T: 41 QT: 374 QTc: 457 Interpretive Statements SINUS RHYTHM Compared to ECG 08/29/2022 11:42:19 Sinus tachycardia no longer present Electronically Signed On 08-30-2022 5:54:45 CDT by Luly Castro M.D. [email or web address]
== END 2022-08-29 14:36 | disposition home or self-care (01) ==
PROVIDERS: Family Medicine; Emergency Provider Emergency Medicine; PCP Family Medicine
DX: R07.9 Chest pain, unspecified (principal); K29.70 Gastritis, unspecified, without bleeding; F10.10 Alcohol abuse, uncomplicated; I10 Essential (primary) hypertension
CPT/HCPCS: 71045; 71260; 74177; 80053; 80307; 84484; 85025; 93005; 96374; 99285; C9113; J7030; Q9967